=== PATIENT | female | born 1955 | race Caucasian/White ===

== ENCOUNTER 2022-09-12 13:08 | Outpatient (REF) | payer MEDICARE, SELFPAY ==
--- NOTE | ~2022-09-12 | MR_ITS ---
EXAMINATION: MR LUMBAR SPINE WITHOUT CONTRAST CLINICAL INFORMATION: Radiculopathy. COMPARISON: None TECHNIQUE: MRI of the lumbar spine was obtained using routine sequences without contrast. FINDINGS: The lumbar vertebral bodies maintain normal heights. There is severe disc height loss at L3-L4, L4-L5, mild retrolisthesis, and mild amount of subchondral endplate edema. The remaining lumbar disc levels appear normal. The distal spinal cord appears normal with conus medullaris terminating at the L1 level. The extraspinal soft tissues are within normal limits. SPINAL LEVELS: L1-L2: No posterior disc abnormality. No spinal canal or neural foraminal stenosis. L2-L3: Disc bulging with annular fissuring. No spinal canal or neural foraminal stenosis. L3-L4: Disc bulging with osteophytic ridging and mild facet arthropathy. Bilateral subarticular stenosis. Mild bilateral neural foraminal stenosis. Mild spinal canal stenosis. L4-L5: Disc bulging with mild to moderate facet arthropathy resulting in mild spinal canal stenosis and bilateral subarticular stenosis. Mild to moderate right and mild left neural foraminal stenosis. L5-S1: Mild disc bulging with mild facet arthropathy. No spinal canal or neural foraminal stenosis. MR/MR lumbar spine wo con IMPRESSION: 1. Multilevel degenerative spondylosis without significant narrowing of the spinal canal. 2. At L3-L4 there is bilateral subarticular stenosis and mild bilateral neural foraminal stenosis. 3. At L4-L5 there is mild spinal canal stenosis, bilateral subarticular stenosis, and mild to moderate right and mild left neural foraminal stenosis.
== END 2022-09-12 13:09 | disposition home or self-care (01) ==
LOC: HO.MRI 13:08
PROVIDERS: Visit Provider Psychiatry & Neurology Neurology
DX: M54.16 Radiculopathy, lumbar region (principal)
CPT/HCPCS: 72148

== ENCOUNTER 2022-11-24 09:58 | Outpatient (REF) | payer MEDICARE, SELFPAY ==
--- NOTE | ~2022-11-24 | XR_ITS ---
EXAMINATION: XR HIP, RIGHT CLINICAL INFORMATION: Pain in unspecified hip COMPARISON: None TECHNIQUE: Two views of the right hip. FINDINGS: Moderate joint space narrowing of the right hip with acetabular sclerosis and femoral collar osteophytes. No hip or pelvic fracture seen. XR/XR hip RT w PEL1V IMPRESSION: Moderate osteoarthritis of the right hip.
== END 2022-11-24 09:59 | disposition home or self-care (01) ==
LOC: HO.HOSX 09:58
PROVIDERS: PCP Internal Medicine; Visit Provider Physician Assistant
DX: M16.11 Unilateral primary osteoarthritis, right hip (principal); M54.16 Radiculopathy, lumbar region; M79.604 Pain in right leg
CPT/HCPCS: 73502; 99202

== ENCOUNTER 2022-12-01 12:58 | Outpatient (REF) | payer MEDICARE, SELFPAY ==
--- NOTE | ~2022-12-01 | FL_ITS ---
EXAMINATION: Fluoroscopy-guided right hip arthrogram and steroid injection. CLINICAL INFORMATION: Radiculopathy lumbar region. COMPARISON: None TECHNIQUE: Following explaining right hip arthrogram and steroid injection procedure, benefits and risk, a written consent was obtained. Patient was placed supine on fluoroscopy table and anterior aspect right hip joint was cleaned and draped in the usual sterile manner. 1% marker was placed in the puncture site. 1% lidocaine was injected puncture site. A 22-gauge spinal needle was inserted from the skin to the lateral border of femoral head and neck and 2 mL off noncontrast was injected and single image obtained.. A single image was obtained. Subsequently an MLO 1% lidocaine and 80 mg of Depo-Medrol was injected and needle withdrawn. Complete hemostasis achieved at puncture site. Sterile Band-Aid applied postprocedure. FINDINGS: There is reduction the right hip joint space with periarticular spurring. No bony erosive changes seen. There are no loose bodies. 80 mg of Depo-Medrol was then injected in the right hip joint. FLUOROSCOPY TIME: 1.0 minutes DOSE AREA PRODUCT: 5.649 uGy-m2 (microgray-meter squared) FL/FL arthrogram hip RT IMPRESSION: Successful fluoroscopy-guided right hip steroid injection performed.
== END 2022-12-01 12:59 | disposition home or self-care (01) ==
LOC: HO.XRAY 12:58
PROVIDERS: Visit Provider Physician Assistant
DX: M16.11 Unilateral primary osteoarthritis, right hip (principal); M54.16 Radiculopathy, lumbar region
CPT/HCPCS: 27093; 73525

== ENCOUNTER → 2023-01-02 12:38 | Outpatient (BNVA) | payer MEDICARE, SELFPAY | PROVIDERS: PCP Internal Medicine; Visit Provider Physician Assistant | DX: M16.11 Unilateral primary osteoarthritis, right hip (principal); M54.16 Radiculopathy, lumbar region | CPT/HCPCS: 99212 ==

== ENCOUNTER 2023-02-06 13:00 | Outpatient (RCR) | payer MEDICARE, SELFPAY ==
--- NOTE | 2022-12-15 14:41 | MHC.PT.EP ---
[facility] [place] Office [place] Office [place] Office [address] Jorge Alberto Adnrade [address] [phone] F: [phone] F: [phone] F: [phone] F: [phone] Physical Therapy Plan of Care Date of Evaluation: Date of Surgery: n/a Diagnosis: lumbar radiculopathy, OA of R hip Assessment: Patient is a 67 year old female presenting to PT with complaints of pain in her low back and R hip. Pt reports onset of pain began 18 months ago due to insidious onset. She presents today with impairments in pain, lumbar ROM, hip strength, core strength, radicular pain. Pt's current occupation is retired, with baseline physical activities including gardening, transfers to and from floor, ADLs, ambulating, stair negotiation, caring for grandkids. Pt expresses alf goal of reducing pain, and is motivated to work towards this in PT. Clinical presentation today is most consistent with signs and sx associated with stenosis as outlined on MRI and pt will benefit from skilled PT to address the following problems and impairments noted upon evaluation: pain, lumbar ROM, hip strength, core strength, radicular pain. These problems limit the patient with the following functional activities: gardening, transfers to and from floor, ADLs, ambulating, stair negotiation, caring for grandkids. The prescribed treatment plan of care is medically necessary. Co-morbidities of osteoporosis were identified and taken into considerations of plan of care. Pt was educated on HEP, role of PT, prognosis, POC. Frequency and Duration: The patient will be seen 2 x week x 5 weeks Short Term Goals: Pt will demonstrate improved hip abd MMT strength by 1/3 grade in 3 weeks for improved lumbopelvic stability. Pt will demonstrate ability to perform PPT with good control in 3 weeks for improved core strength. Pt will demonstrate reports of centralization of pain in 3 weeks for improved QOL. Pt will demonstrate improved R quad strength to 5/5 in 3 weeks for improved ability to transfer. [facility] Goals: Pt will demonstrate improved Yolanda score by 10% in 5 weeks for improved functional mobility. Pt will demonstrate improved LEFI score by 9 points in 5 weeks for improved functional mobility. Pt will demonstrate ability to negotiate stairs with step over step pattern in 5 weeks for return to PLOF. Pt will demonstrate ability to ambulate community distances with less reports of pain and radicular sx in 5 weeks for improved ability to navigate the community. Treatment Plan: Modalities to reduce pain, spasms and effusion. Manual therapy to restore motion and function. Therapeutic exercise to improve strength and flexibility. Neuromuscular re-education for posture and balance. Therapeutic activities to return to functional activities of daily living. Electronically signed by: Rose Artis, PT, DPT, ATC Please sign and return to therapist. Thank you for your referral.
--- NOTE | 2023-02-06 13:56 | MHC.PT.DC ---
[facility] [place] Office [place] Office [place] Office [address] Jorge Alberto Andrade [address] [phone] F: [phone] F: [phone] F: [phone] F: [phone] Physical Therapy Discharge Report Diagnosis: lumbar radiculopathy, OA of R hip Date of Surgery: n/a Date of Evaluation: 12/15/22 Date of Discharge: 02/06/23 Treatments to Date: 14 Cancellations to Date: 1 No Shows to Date: 0 Discharge Status: Improved Function Independent with HEP Recommend MD Follow-up Discharge Summary: 02/06/2023: Pt has made some progress since start of PT. Her sx are better however she is still having flare ups. Her exercises help control her radicular sx somewhat but not fully. At this point max benefits of PT have been provided and skilled PT is no longer indicated at this time. Pt knows she should continue with HEP at home. Recommend at this time referral to specialist for low back. Electronically signed by: Rose Artis, PT, DPT, ATC Please sign and return to therapist. Thank you for your referral.
== END 2023-02-06 13:56 | disposition home or self-care (01) ==
LOC: HO.PTCHIC 13:00
PROVIDERS: PCP Internal Medicine; Visit Provider Physician Assistant
DX: M54.16 Radiculopathy, lumbar region (principal); M16.11 Unilateral primary osteoarthritis, right hip
CPT/HCPCS: 97110; 97140; 97161

== ENCOUNTER 2023-03-06 13:49 | Outpatient (REF) | payer MEDICARE, SELFPAY ==
--- NOTE | ~2023-03-06 | XR_ITS ---
EXAMINATION: XR LUMBOSACRAL SPINE CLINICAL INFORMATION: Pain radiating down legs for 18 months. COMPARISON: None available. TECHNIQUE: Three views of the lumbosacral spine. FINDINGS: There is mild straightening of lumbar lordosis. The vertebral heights and alignment are normal. There is loss of L3-L4 and L4-L5 disc heights with vacuum disc phenomena and ventral spondylosis. Rest of the disc heights are normal. No visible acute fracture, lytic or sclerotic process seen. Suspect mild spinal canal stenosis at the L3-L4, L4-L5 and L5-S1 disc levels. No lytic or sclerotic process seen. The paravertebral soft tissues are normal. XR/XR lumbar spine 2-3V IMPRESSION: Degenerative disc changes L3-L4 and L4-L5 disc levels with moderate ventral spondylosis. No visible acute fracture or dislocation seen.
== END 2023-03-06 13:50 | disposition home or self-care (01) ==
LOC: HO.XRAY 13:49
PROVIDERS: PCP Internal Medicine; Visit Provider Nurse Practitioner Family
DX: M47.816 Spondylosis without myelopathy or radiculopathy, lumbar region (principal); M81.0 Age-related osteoporosis without current pathological fracture
CPT/HCPCS: 72100; 99202

== ENCOUNTER → 2023-04-09 15:25 | Outpatient (BNVA) | payer MEDICARE, SELFPAY | PROVIDERS: PCP Internal Medicine; Visit Provider Nurse Practitioner Family | DX: M81.0 Age-related osteoporosis without current pathological fracture (principal); M54.16 Radiculopathy, lumbar region; M16.11 Unilateral primary osteoarthritis, right hip; M47.816 Spondylosis without myelopathy or radiculopathy, lumbar region; M25.551 Pain in right hip; M48.061 Spinal stenosis, lumbar region without neurogenic claudication; G89.29 Other chronic pain | CPT/HCPCS: 99212 ==

== ENCOUNTER 2023-04-14 13:22 | Outpatient (REF) | payer MEDICARE, SELFPAY ==
--- NOTE | ~2023-04-14 | MR_ITS ---
EXAMINATION: MR HIP WITHOUT CONTRAST, RIGHT CLINICAL INFORMATION: Primary osteoarthritis right hip. COMPARISON: X-rays of the pelvis and right hip November 2022, x-rays lumbosacral spine February 2023. TECHNIQUE: MRI of the right hip was obtained using routine sequences on a high-field strength magnet. FINDINGS: Bone/cartilage: Right hip joint: There is nonuniform but primarily high-grade cartilage loss throughout most of the hip joint particularly anteriorly superiorly. There is associated subchondral cystic change and reactive marrow edema. There are marginal osteophytes. There is a joint effusion and synovitis. No loose bodies detected. Limited evaluation of the entire pelvis reveals no additional abnormalities in the left hip joint, symphysis pubis or sacroiliac joints. There is multilevel spondylosis of the lumbosacral spine with advanced degenerative disc changes at L3-L4 and L4-L5 manifested by marked disc space narrowing and endplate osteophytes. This is unchanged compared with x-ray of February 2023. Ligamentum teres: Normal. Labrum superior and posterior superior labrum indicative of nondisplaced degenerative tearing. No paralabral cyst. Muscles and tendons: Normal. Neurovascular structures: Normal. Lymph nodes: Normal. Miscellaneous: Intrapelvic soft tissues unremarkable. MR/MR hip RT wo con IMPRESSION: 1. Aagdbhgh-yi-okzuwh osteoarthritis of the right hip joint with joint effusion and synovitis. 2. Nondisplaced likely degenerative tearing of the superior and posterior superior labrum. 3. Incidental note made of spondylosis of the partially visualized lumbosacral spine unchanged compared with recent x-rays February 2023.
== END 2023-04-14 13:23 | disposition home or self-care (01) ==
LOC: HO.MRI 13:22
PROVIDERS: PCP Internal Medicine; Visit Provider Nurse Practitioner Family
DX: M16.11 Unilateral primary osteoarthritis, right hip (principal); M81.0 Age-related osteoporosis without current pathological fracture; M54.16 Radiculopathy, lumbar region
CPT/HCPCS: 73721

== ENCOUNTER 2023-04-21 05:57 | Outpatient (REF) | payer MEDICARE, SELFPAY ==
--- NOTE | ~2023-04-21 | FL_ITS ---
EXAMINATION: XR FLUOROSCOPY WITH IMAGES CLINICAL INFORMATION: Spinal stenosis, lumbar region without neurogenic claudication. COMPARISON: None available. TECHNIQUE: Fluoroscopy Supervised By: Dr. Boone. Fluoroscopy Time: 0.5 minutes. Cumulative Dose: 6.11 mGy. DAP: 0.106 Gycm2. Images: 4. FINDINGS: Images demonstrate needle placement and contrast injection adjacent to the right lateral L3 and L4 vertebral bodies FL/FL guidance in treatment room IMPRESSION: Fluoroscopy guidance for pain management procedure
== END 2023-04-21 05:58 | disposition home or self-care (01) ==
LOC: CF 05:57
PROVIDERS: Visit Provider Anesthesiology
DX: M47.26 Other spondylosis with radiculopathy, lumbar region (principal); M48.061 Spinal stenosis, lumbar region without neurogenic claudication; M16.11 Unilateral primary osteoarthritis, right hip; G89.29 Other chronic pain; M81.0 Age-related osteoporosis without current pathological fracture; R10.30 Lower abdominal pain, unspecified
CPT/HCPCS: 64483; 64484; 99212

== ENCOUNTER → 2023-05-01 09:41 | Outpatient (BNVA) | payer MEDICARE, SELFPAY | PROVIDERS: PCP Internal Medicine; Visit Provider Physician Assistant | DX: M16.11 Unilateral primary osteoarthritis, right hip (principal) | CPT/HCPCS: 99202 ==

== ENCOUNTER 2023-06-01 13:04 | Outpatient (AMB) | payer MEDICARE, SELFPAY ==
[2023-06-01 13:22] VITALS: BMI 24.2
--- NOTE | 2023-06-01 13:22 | MHC.OFFVIS ---
Intake Vital Signs 06/01/23 13:22 Height 5 ft 9 in Weight 164 lb BMI 24.2 Intake Visit Reasons: RT Hip OA Intake Note: Fara is a 67 year old female who presents today as a new patient with complaints of right hip pain. Her pain is felt on the lateral aspect of the hip and radiates down the leg with prolonged walking. Patient reports that she has had onging right hip pain for about 2 years now, she had a cortisone injection in the hip with nate which did not help. She was also referred to physical therapy, which did give her increased strength of the leg. She was seen with Sharon in pain mgmt who recommended epidural, this was done and did not help her symptoms. She was referred to [place] by Paolo. Allergies No Known Allergies Allergy (Verified 04/21/23 07:20) HPI RT Hip OA HPI Details Fara is a 67 year old woman who presents with complaints of right hip pain. She complains of pain primarily in the lateral aspect of her right hip for ~2 years now, though with some mild groin pain. She has pain with weight-bearing activities, and is limited in her ability to walk or stand. She says when out with her grandchildren she often has to sit, and she is unhappy by this. She says she is occasionally unable to put her foot onto the floor while she is sitting due to her pain. She is frustrated that nothing seems to be helping her pain. She has completed a course of PT and says she found ~2 days of relief from a hip arthrogram on 12/01/22. She has been seen by Pain management for her lumbar radiculopathy, an received an epidural injection on 04/21/23, which did not help. [facility] Medical History Osteoporosis Review of Systems Const All systems reviewed & are unremarkable except as noted in HPI and below Physical Exam Vital Signs: BMI result Body Mass Index 24.2 Const General: no acute distress, alert and awake Orientation/consciousness: patient oriented x3 HEENT Head: Yes normocephalic and Yes atraumatic Eyes EOM: EOMs intact bilaterally Resp Effort & Inspection: normal respiratory effort and able to speak in complete sentences Cardio Jugular venous distension: no JVD Skin General skin exam: turgor normal Rashes: no rashes Neuro General: patient oriented x3 Extrem Other: Right Hip: Trendelenberg gait with neg sign + impingement test [facility] Psych Appearance: grossly normal Affect: normal affect Attitude: cooperative Results Reviewed Results Reviewed: I personally reviewed relevant MR images 1.? Qgbjjypy-ph-vrdmhm osteoarthritis of the right hip joint with joint effusion and synovitis. ? 2.? Nondisplaced likely degenerative tearing of the superior and posterior superior labrum. ? 3.? Incidental note made of spondylosis of the partially visualized lumbosacral spine unchanged compared with recent x-rays February 2023. I personally reviewed relevant radiographs. Moderate to severe right hip OA Assessment & Plan Assessment & Plan (1) Osteoarthritis of right hip: Code(s): M16.11 - Unilateral primary osteoarthritis, right hip Plan: This is a 67 year old woman with moderately severe right hip OA. She has pain with weight-bearing activities, worse with prolonged standing or ambulation. She feels limited in her ADLs, her QOL is diminished, and is frustrated that she is unable to spend meaningful time with her grandchildren. She has some pain in her groin and the lateral aspect of her hip. I discussed her diagnosis and treatment options. The only intervention that has been helpful has been a intra-articular hip injection but this only lasted for 2 days. During that time,. however, she had complete symptom relief. She would benefit from a ELIZABETH and is a good candidate. I discussed the risks, benefits, and alternatives including, but not limited to, the risk of pain, dislocation, LLD, infection, stiffness, need for further surgery as well as potential medical complications such as blood clots, pulmonary embolism and cardiac complications. I discussed the recovery timeline and process as well as the importance of PT. Fara is a good candidate for this surgery, and she wishes to proceed with this decision. She will speak with Soo to schedule this procedure. (2) Lumbar spinal stenosis: Code(s): M48.061 - Spinal stenosis, lumbar region without neurogenic claudication Plan Scribed for Yaw Roach MD by Bret Steel, medical receptionist assistant, on 06/01/23 at 1:45 PM, EST. Coding Level of Care Code Est Pt Level 4 (36224) Diagnoses Osteoarthritis of right hip M16.11 Lumbar spinal stenosis M48.061
== END 2023-06-01 14:32 | disposition home or self-care (01) ==
PROVIDERS: PCP Internal Medicine; Visit Provider Orthopaedic Surgery
DX: M16.11 Unilateral primary osteoarthritis, right hip (principal); M48.061 Spinal stenosis, lumbar region without neurogenic claudication
CPT/HCPCS: 99214

== ENCOUNTER → 2023-06-01 13:04 | Outpatient (BNVA) | payer MEDICARE, SELFPAY | PROVIDERS: PCP Internal Medicine; Visit Provider Orthopaedic Surgery | DX: M16.11 Unilateral primary osteoarthritis, right hip (principal); M48.061 Spinal stenosis, lumbar region without neurogenic claudication | CPT/HCPCS: 99212 ==

== ENCOUNTER 2023-11-12 12:22 | Outpatient (AMB) | payer MEDICARE, SELFPAY ==
[2023-11-12 12:36] VITALS: BMI 24.2
--- NOTE | 2023-11-12 12:36 | MHC.OFFVIS ---
Intake Vital Signs 11/12/23 12:36 Height 5 ft 9 in Weight 164 lb BMI 24.2 Intake Visit Reasons: Preop-RT ELIZABETH 11/17/23 NE Intake Note: Fara is a 68 year old female who presents today for a pre op appointment of her right ELIZABETH 11/17/23 NE. Pain management agreement given. Allergies No Known Allergies Allergy (Verified 11/12/23 12:36) HPI Preop-RT ELIZABETH 11/17/23 NE HPI Details 68-year-old female who presents in the office today for her preoperative history and physical exam prior to a right total hip arthroplasty to be performed on 11/17/[address] Roach. Patient has no known allergy history. Patient is currently taking, as follows: -Alprazolam 0.5 mg PO Daily PRN -Carbamazepine 200 mg PO BID -Metoprolol succinate ER 50 mg PO daily -Raloxifene 60 mg PO Bedtime -Simvastatin 40 mg PO Bedtime Patient has a medical history, as follows: -Pre-diabetes -DJD (degenerative joint disease) -History of seizures -Polyneuropathy -HTN (hypertension) -Hyperlipemia -Osteoporosis Patient has a surgical history, as follows: -History of ORIF procedure; 2011 left distal radius -History of colonoscopy [facility] Medical History (Updated 11/12/23 @ 12:39 by Mirian Cantrell) Pre-diabetes DJD (degenerative joint disease) History of seizures Polyneuropathy HTN (hypertension) Hyperlipemia Osteoporosis Surgical History History of open reduction and internal fixation (ORIF) procedure (~2011) Hx of colonoscopy Social History Household Members: Spouse Housing: House Are you a primary intensive care anaesthetist to a significant other at home: No Do you presently have visiting nurse or other home services: No 75 years or older and lives alone: No Patient Tobacco Use Status: Never used Tobacco Use of substances other than those prescribed or required for medical reasons: No Have you been hit, kicked, punched, or otherwise hurt by someone within the past year? If so, by whom?: No Do you feel safe in your current relationship?: Yes Advance Directives: Yes (will bring dos) Advance Directives Information Provided: No Advance Directives on File: No Recently lost weight without trying: No Review of Systems Const All systems reviewed & are unremarkable except as noted in HPI and below Physical Exam Vital Signs: BMI result Body Mass Index 24.2 Const General: cooperative, healthy appearing, comfortable, no acute distress, well developed, alert and awake Orientation/consciousness: patient oriented x3 HEENT Head: Yes normal to inspection, Yes normocephalic and Yes atraumatic Eyes General: appearance normal, both eyes and all related structures EOM: EOMs intact bilaterally Neck Neck: Yes normal visual inspection and Yes no lymphadenopathy Resp Effort & Inspection: normal respiratory effort and able to speak in complete sentences Cardio Jugular venous distension: no JVD Rate: regular rate Peripheral pulses: Peripheral pulses 2+ throughout GI Inspection: Yes normal to inspection Palpation (GI): Soft to palpation Skin General skin exam: no rashes or lesions noted Rashes: no rashes Neuro General: patient oriented x3 Extrem Other: Right Hip: Skin is clean, dry, and intact. Trendelenberg gait with neg sign + impingement test + [facility] Appearance: grossly normal Mental Status: mental status grossly normal Affect: normal affect Attitude: cooperative Assessment & Plan Assessment & Plan (1) Osteoarthritis of right hip: Code(s): M16.11 - Unilateral primary osteoarthritis, right hip Qualifiers: Osteoarthritis type: unspecified Qualified Code(s): M16.11 - Unilateral primary osteoarthritis, right hip (2) Lumbar spinal stenosis: Code(s): M48.061 - Spinal stenosis, lumbar region without neurogenic claudication Qualifiers: Neurogenic claudication status: unspecified Qualified Code(s): M48.061 - Spinal stenosis, lumbar region without neurogenic claudication Plan Ms. Lerner is a 68-year-old female who presents in the office today for her preoperative history and physical exam prior to a right total hip arthroplasty to be performed on 11/17/[address] Roach. Patient has no known allergy history. Patient is currently taking, as follows: -Alprazolam 0.5 mg PO Daily PRN -Carbamazepine 200 mg PO BID -Metoprolol succinate ER 50 mg PO daily -Raloxifene 60 mg PO Bedtime -Simvastatin 40 mg PO Bedtime Patient has a medical history, as follows: -Pre-diabetes -DJD (degenerative joint disease) -History of seizures -Polyneuropathy -HTN (hypertension) -Hyperlipemia -Osteoporosis Patient has a surgical history, as follows: -History of ORIF procedure; 2011 left distal radius -History of colonoscopy I discussed in detail the procedure and what to expect pre and post operatively. We discussed the risks, benefits and alternatives to the surgery as well as the rehabilitation course. The risks; which include, but are not limited to infection, bleeding, nerve injury, ongoing pain, swelling, and stiffness, perioperative risk of injury to bones and soft tissues, and blood clots. I have answered all questions and with their understanding they have consented to move forward with a right total hip arthroplasty to be performed on 11/17/[address] Yaw Roach. Follow up will be at the post operative appointment on 12/03/2023 at 1:00 pm, or sooner if needed. Patient Instructions: Scribed for Ashia Candelaria PA-C by Mirian Cantrell medical office asst, on 11/12/2023 at 12:24 pm, EST. Coding Level of Care Code Global (74316) Diagnoses Osteoarthritis of right hip, unspecified osteoarthritis type M16.11 Osteoarthritis type: unspecified Spinal stenosis of lumbar region, unspecified whether neurogenic claudication present M48.061 Neurogenic claudication status: unspecified
== END 2023-11-12 13:08 | disposition home or self-care (01) ==
PROVIDERS: PCP Internal Medicine; Visit Provider Physician Assistant
DX: M16.11 Unilateral primary osteoarthritis, right hip (principal); M48.061 Spinal stenosis, lumbar region without neurogenic claudication
CPT/HCPCS: 99024

== ENCOUNTER → 2023-11-12 12:22 | Outpatient (BNVA) | payer MEDICARE, SELFPAY | PROVIDERS: PCP Internal Medicine; Visit Provider Physician Assistant | DX: Z01.818 Encounter for other preprocedural examination (principal); M16.11 Unilateral primary osteoarthritis, right hip; M48.061 Spinal stenosis, lumbar region without neurogenic claudication | CPT/HCPCS: 99212 ==

== ENCOUNTER 2023-11-17 05:59 | Inpatient (IN) | payer MEDICARE, SELFPAY ==
[2023-11-11 11:46] VITALS: BP 141/68; PULSE 63; RESP 16; O2SAT 95; BMI 23.3
--- NOTE | 2023-11-11 12:01 | HO.ANESPROP2 ---
HPI - Anesthesia Eval Consult details Narrative: 68yo F for Right Hip Total Replacement, 11/17/23 Medically cleared (abnormal EKG at that appointment similiar to previous, 2004, with nml stress test at that time) No recent illness NO CP/SOB with >4 mets Seizures. Last 20 years ago. Carbamazepine BID NAVAJO. Bilat hearing aids PMFSH Active Problems Active Problems: All Active Problems (Updated 11/10/23 @ 12:38 by Bharati Regalado RN) Osteoarthritis of right hip (Acute) Lumbar spinal stenosis (Acute) Chronic right hip pain (Acute) Lumbar spondylosis (Acute) Lumbar radiculopathy (Acute) Osteoarthritis of right hip (Acute) Osteoporosis (Acute) Past Medical History Medical History Pre-diabetes DJD (degenerative joint disease) History of seizures Polyneuropathy HTN (hypertension) Hyperlipemia Osteoporosis Family History Family history of problems with anesthesia: No Surgical History Surgical History History of open reduction and internal fixation (ORIF) procedure (~2011) Hx of colonoscopy History of Problems with Anesthesia: No Social History Social History Household Members: Spouse Housing: House Are you a primary health care marketing manager to a significant other at home: No Do you presently have visiting nurse or other home services: No 75 years or older and lives alone: No Patient Tobacco Use Status: Never used Tobacco Second Hand Smoke Exposure: No service: No Meds Allergies Allergy/AdvReac Type Severity Reaction Status Date / Time No Known Allergies Allergy Verified 11/17/23 06:49 Home Medications Medication Instructions Recorded Confirmed Last Taken Type carbamazepine 200 mg tablet 200 mg PO BID 11/24/22 11/17/23 11/17/23 History (Tegretol) metoprolol succinate 50 mg 50 mg PO DAILY 11/24/22 11/17/23 11/17/23 History tablet,extended release 24 hr raloxifene 60 mg tablet 60 mg PO BEDTIME 11/24/22 11/17/23 11/16/23 History simvastatin 40 mg tablet 40 mg PO BEDTIME 11/24/22 11/17/23 11/16/23 History alprazolam 0.25 mg tablet 0.5 mg PO DAILY PRN Anxiety 03/06/23 11/11/23 Unknown History Exam Height,Weight and Vital Signs: Height 5 ft 9 in Weight 71.6 kg Last Vital Signs Pulse 63 11/11/23 11:46 Resp 16 11/11/23 11:46 BP 141/68 H 11/11/23 11:46 Pulse Ox 95 11/11/23 11:46 O2 Del Method Room Air 11/11/23 11:46 Pertinent Lab Results Pertinent Lab Results: Lab Results 11/11/23 11/11/23 11/11/23 Range/Units 12:00 12:30 12:34 WBC 5.5 (4.8-10.8) X10*3/uL RBC 4.43 (4.20-5.50) X10*6/uL Hgb 13.7 (12.0-16.0) g/dl Hct 39.5 (37.0-47.0) % MCV 89.2 (80.0-98.0) fL MCH 30.9 (27.0-33.0) pg MCHC 34.7 (31.0-35.0) g/dl RDW 12.0 (11.0-16.0) % Plt Count 170 (160-400) X10*3/uL MPV 11.1 (9.4-12.3) fL Absolute Nucleated RBC 0.000 (0.0-0.012) X10*3/uL Nucleated RBC % (auto) 0.0 (0.0-0.2) /100WBC Sodium 138 (135-145) mmol/L Potassium 3.2 L (3.3-5.1) mmol/L Chloride 103 (96-108) mmol/L Carbon Dioxide 28 (22-29) mmol/L Anion Gap 10 L (12-20) BUN 14 (9-16) mg/dL Creatinine 0.71 (0.5-1.4) mg/dL Estim Creat Clear Calc 77.0 Estimated GFR > 60 Random Glucose 156 H (60-115) mg/dL Calcium 8.9 (8.4-10.2) mg/dL Nasal Screen MRSA (PCR) NEGATIVE (Negative) Nasal S. aureus Screen NEGATIVE (Negative) Nasal MRSA/S.aureus Interp SEE NOTE Blood Type B Positive Antibody Screen NEGATIVE Narrative Narrative: EKG 10/2023 SR @ 64 Inferior infarct, old Consider anterior infarct No change from previous 2004 Airway Mallampati Class: II TM Dist: >3cm Neck ROM: Full Loose/Missing/Broken Teeth: No (7-10 crowned) Heart: RRR Lungs: CTAB Assessment and Plan Assessment Anesthesia Assessment: Anesthesia Plan Discussed and PAT Visit Final Anesthetic Review Family History of Problems with Anesthesia: No History of Problems with Anesthesia: No
[2023-11-11 14:04] LABS: Hematocrit 39.5 % (37.0-47.0); Hemoglobin 13.7 g/dl (12.0-16.0); Mean Corpuscular HGB Conc 34.7 g/dl (31.0-35.0); Mean Corpuscular Hemoglobin 30.9 pg (27.0-33.0); Mean Corpuscular Volume 89.2 fL (80.0-98.0); Mean Platelet Volume 11.1 fL (9.4-12.3); Platelet Count 170 X10*3/uL (160-400); Red Blood Count 4.43 X10*6/uL (4.20-5.50); White Blood Count 5.5 X10*3/uL (4.8-10.8)
[2023-11-11 14:38] LABS: Anion Gap 10 (12-20); Blood Urea Nitrogen 14 mg/dL (9-16); Calcium 8.9 mg/dL (8.4-10.2); Carbon Dioxide 28 mmol/L (22-29); Chloride 103 mmol/L (96-108); Estimated Glomerular Filt Rate > 60; Glucose Random 156 mg/dL (60-115); Potassium 3.2 mmol/L (3.3-5.1); Sodium 138 mmol/L (135-145)
[2023-11-17] VITALS (16 sets, daily range): BP systolic 112–163; BP diastolic 60–79; PULSE 60–73; RESP 14–20; TEMP 36.1–36.7; O2SAT 92–98; BMI 25.8
--- NOTE | ~2023-11-17 | XR_ITS ---
EXAMINATION: XR PELVIS CLINICAL INFORMATION: Right hip arthroplasty COMPARISON: None available. TECHNIQUE: AP view of the pelvis. FINDINGS: There is a right total hip replacement in anatomic alignment and position. Skin brendan and soft tissue air are present. XR/XR pelvis 1-2V IMPRESSION: Right total hip replacement in anatomic alignment and position.
--- OUTSIDE RECORDS SUMMARY | 2023-11-17 06:04 | XMS_ITS | Patient Health Record ---
Author Name Unknown [facility] Address [address] [place] [address] Care Team Providers Care Caddymaster Name Role Phone Ludin MAGAÑA, Candelaria Primary Care Provider Valeriano Zamarripa Unavailable [phone] Inna Li Unavailable [phone] ALLERGIES No Known Allergies REASON FOR REFERRAL No Information MEDICATIONS Medication SIG (Take, Route, Frequency, Duration) Notes Start Date End Date Status Raloxifene HCl 60 MG TAKE 1 TABLET ONCE A DAY Oral for 30 Active Atenolol 50 MG TAKE ONE TABLET BY MOUTH EVERY DAY Oral for 30 Not-Taking TEGretol 200 MG 1 tablet Orally Twic e a day Active Simvastatin 40 MG TAKE ONE TABLET BY MOUTH AT BEDTIME Oral for 30 Active Sulindac 150 MG TAKE ONE TABLET BY MOUTH TWICE A DAY Oral for 15 Not-Taking carBAMazepine 200 MG TAKE ONE TABLET BY MOUTH THREE TIMES A DAY Oral for 30 Not-Taking Multivitamin Not-Rylan ing Nightsplint . . . AFO - L1930 for . Not-Taking Metoprolol Succinate 50 MG 1 capsule Ora lly Once a day for 30 day(s) Active ALPRAZolam 0.25 MG (Schedule IV Drug) TAKE TWO TABLETS BY MOUTH EVERY DAY NEEDED Oral for 30 Not-Taking Gabapentin 100 MG 1 capsule Orally Onc e a day for 30 day(s) Active SOCIAL HISTORY Tobacco Use: Social History Observation Description Date Details (start date - stop date) Never Smoker NA - NA Sex Assigned At : Social History Observation Description Sex Assigned At Unknown Tobacco Use/Smoking Question Answer Notes Are you a: nonsmoker Additional Findings: Tobacco Non-User Current no n-smoker Alcohol Screen Question Answer Notes Did you have a drink containing alcohol in the p ast year? No Points 0 Interpretation Negative Tobacco use other than smoking: Question Answer Notes Are you an other tobacco user? No PROBLEMS Problem Type ICD Code Onset Dates Problem Status W/U Status Risk SNOMED Code Notes Problem Plantar fascial fibromatosis (M72.2) Active confirmed Plantar fascial fibromatosis (62592001) VITAL SIGNS Height 5 ft 9 in in 12/23/2022 Weight 165 lbs 12/23/2022 BMI 24.36 kg/m2 12/23/2022 Encounters Encounter Location Date Provider Diagnosis [facility] [address] [place] [address] 12/12/2022 Valeriano Castelan [facility] [address] [place] [address] 12/23/2022 Inna Li Contusion of left great toe with damage to nail, initial encounter S90.212A ASSESSMENTS Encounter Date Diagnosis Assessment Notes Treatment Notes Treatment Clinical Notes 12/23/2022 Contusion of left great toe with damage to nail, initial encounter (ICD-10 - S90.212A) PLAN OF TREATMENT No Information Insurance Providers Payer Name Payer Address Payer Phone Subscriber Number Group Number Insured Name Patient Relationship to Insured Coverage Start Date Coverage End Date Medicare National [employer] [address] [place] [address] [id number] EduardaFara read Self - patient is the insured 8 [employer] Secondary to Medicare [address] [place] [address] [id number] EduardaFara read Self - patient is the insured 8 MEDICAL (GENERAL) HISTORY Medical History History ICD Code Epilepsy Seizures High blood pressure Measles Mumps Chicken pox Neuropathy in feet - unknown origin Surgical History Surgery Date(Month/Year)
[2023-11-17] MEDS: Lactated Ringers 1,000 ML 100 ML IVCONT ×3 (06:45→23:14)
[2023-11-17] MEDS: oxyCODONE HCl ER 10 MG TAB.ER.12H PO ×2 (06:46→20:39)
--- NOTE | 2023-11-17 07:09 | PHA.MEDREC ---
Pharmacy Consult ? Medication Reconciliation Pharmacy has completed the medication reconciliation. Reviewed med rec done by nursing
--- NOTE | 2023-11-17 07:21 | HO.ANESPROP2 ---
[facility]LY [facility] Active Problems Active Problems: All Active Problems (Updated 11/12/23 @ 12:39 by Mirian Cantrell) Osteoarthritis of right hip (Acute) Lumbar spinal stenosis (Acute) Chronic right hip pain (Acute) Lumbar spondylosis (Acute) Lumbar radiculopathy (Acute) Osteoarthritis of right hip (Acute) Osteoporosis (Acute) Past Medical History Medical History Pre-diabetes DJD (degenerative joint disease) History of seizures Polyneuropathy HTN (hypertension) Hyperlipemia Osteoporosis Functional capacity: independent ambulation Family History Family history of problems with anesthesia: No Surgical History Surgical History History of open reduction and internal fixation (ORIF) procedure (~2011) Hx of colonoscopy History of Problems with Anesthesia: No Social History Social History Household Members: Spouse Housing: House Are you a primary reproductive healthcare assistant to a significant other at home: No Do you presently have visiting nurse or other home services: No Patient Tobacco Use Status: Never used Tobacco Use of substances other than those prescribed or required for medical reasons: No Have you been hit, kicked, punched, or otherwise hurt by someone within the past year? If so, by whom?: No Are you DNR?: No Advance Directives: No Advance Directives Information Provided: Yes Advance Directives on File: No Recently lost weight without trying: No Nutrition Risks: No Nutritional Risk Poor oral hygiene: No Meds Allergies Allergy/AdvReac Type Severity Reaction Status Date / Time No Known Allergies Allergy Verified 11/17/23 06:49 Active Medications: Current Medications Lactated Ringer's (Lr) 1,000 mls @ 100 mls/hr IVCONT .Q10H MELVA Last Admin: 11/17/23 06:45 Dose: 100 mls/hr Home Medications Medication Instructions Recorded Confirmed Last Taken Type carbamazepine 200 mg tablet 200 mg PO BID 11/24/22 11/17/23 11/17/23 History (Tegretol) metoprolol succinate 50 mg 50 mg PO DAILY 11/24/22 11/17/23 11/17/23 History tablet,extended release 24 hr raloxifene 60 mg tablet 60 mg PO BEDTIME 11/24/22 11/17/23 11/16/23 History simvastatin 40 mg tablet 40 mg PO BEDTIME 11/24/22 11/17/23 11/16/23 History alprazolam 0.25 mg tablet 0.5 mg PO DAILY PRN Anxiety 03/06/23 11/11/23 Unknown History Exam Height,Weight and Vital Signs: Height 5 ft 9 in Weight 71.6 kg Last Vital Signs Temp 97.1 F 11/17/23 06:44 Pulse 64 11/17/23 06:44 Resp 16 11/17/23 06:44 BP 153/78 H 11/17/23 06:44 Pulse Ox 96 11/17/23 06:44 O2 Del Method Room Air 11/17/23 06:44 Pertinent Lab Results Pertinent Lab Results: Laboratory Tests 11/11/23 11/11/23 11/11/23 12:00 12:30 12:34 WBC 5.5 RBC 4.43 Hgb 13.7 Hct 39.5 MCV 89.2 MCH 30.9 MCHC 34.7 RDW 12.0 Plt Count 170 MPV 11.1 Absolute Nucleated RBC 0.000 Nucleated RBC % (auto) 0.0 Sodium 138 Potassium 3.2 L Chloride 103 Carbon Dioxide 28 Anion Gap 10 L BUN 14 Creatinine 0.71 Estim Creat Clear Calc 77.0 Estimated GFR > 60 Random Glucose 156 H Calcium 8.9 Nasal Screen MRSA (PCR) NEGATIVE Nasal S. aureus Screen NEGATIVE Nasal MRSA/S.aureus Interp SEE NOTE Blood Type B Positive Antibody Screen NEGATIVE Airway Mallampati Class: II TM Dist: >3cm Neck ROM: Full Heart: RRR Lungs: CTA Assessment and Plan Assessment Anesthesia Assessment: Anesthesia Plan Discussed Final Anesthetic Review Family History of Problems with Anesthesia: No History of Problems with Anesthesia: No NPO: Yes ASA Class: II Final Preanesthetic Review: Meds/Allgs Chart Reviewed, Consent Obtained/Reviewed and Anes Risks/Benef Reviewed Patient Risk: Low Procedure Risk: Low Anesthetic Plan Anesthetic Plan: GA Disposition: Standard PACU
--- NOTE | 2023-11-17 09:24 | P.BOP_ITS ---
Brief Operative Note Date of Service: 11/17/23 Pre-op diagnosis: Right hip OA Post-op diagnosis: same Procedure: Right ELIZABETH Implants: Mario Trident2 50 Mario Accolade 2 #4 132 deg with +4 32 ceramic femoral head Surgeon: Yaw Roach MD Anesthesia: GETA Was an Healthcare Market Consultant used for this Procedure?: Yes Healthcare Market Consultant: [facility] [place] Estimated blood loss (mL): 150 IV fluids (mL): 1,000 Pathology: other Condition: stable Disposition: PACU
[2023-11-17] MEDS: oxyCODONE HCl Immed Release 5 MG TABLET PO ×3 (13:00→20:41)
[2023-11-17] MEDS: ceFAZolin Sodium/Dextrose,Iso 2 GM/50 ML PIGGYBACK IV (13:41)
--- NOTE | 2023-11-17 16:58 | HO.PM.IMCN ---
History of Present Illness Data of Consult Service Date: 11/17/23 Requesting physician: [facility] [place] Primary Care Provider: Lauren Jarvis MD HPI Reason for consult: medical management 68-year-old female with history of hypertension, prediabetes, unspecified polyneuropathy, hyperlipidemia, osteoporosis, osteoarthritis admitted to Orthopedic surgery for management of osteoarthritis of the right hip s/p ELIZABETH with consult placed hospitalist service for medical management. Patient is reporting mild discomfort in the right hip but otherwise has no complaints. She denies any alcohol use, cigarette smoking, or illicit drug use. Postoperative vital signs stable. Review of Systems Review of Systems: General: No fevers, malaise, unintentional weight loss HEENT: No blurred vision, diplopia. No sore throat, nasal congestion, rhinorrhea, sinus pain, ear pain Cardiovascular: No chest pain, palpitations, or leg edema Respiratory: No shortness of breath, wheezing, cough GI: No abdominal pain, nausea, vomiting, diarrhea, constipation, melena, hematochezia : No dysuria, hematuria, increased urinary frequency, decreased urinary output MSK: No myalgia, back pain. +R hip pain Neuro: No headaches, weakness, paresthesias Skin: No rashes or lesions [facility] Medical History Pre-diabetes DJD (degenerative joint disease) History of seizures Polyneuropathy HTN (hypertension) Hyperlipemia Osteoporosis Functional capacity: independent ambulation Surgical History History of open reduction and internal fixation (ORIF) procedure (~2011) Hx of colonoscopy Social History Household Members: Spouse Housing: House Are you a primary urgent care physician assistant to a significant other at home: No Do you presently have visiting nurse or other home services: No Patient Tobacco Use Status: Never used Tobacco Use of substances other than those prescribed or required for medical reasons: No Have you been hit, kicked, punched, or otherwise hurt by someone within the past year? If so, by whom?: No Are you DNR?: No Advance Directives: No Advance Directives Information Provided: Yes Advance Directives on File: No Recently lost weight without trying: No Nutrition Risks: No Nutritional Risk Poor oral hygiene: No Meds Allergies Allergy/AdvReac Type Severity Reaction Status Date / Time No Known Allergies Allergy Verified 11/17/23 06:49 Active Medications: Current Medications Acetaminophen (Acetaminophen 325 Mg Tablet) 650 mg PO Q6H PRN PRN Reason: Pain, Mild (Pain Scale 1-3) Aspirin (Aspirin 325 Mg Tablet) 325 mg PO BID [facility] Celecoxib (Celecoxib 200 Mg Capsule) 200 mg PO BID [facility] Docusate Sodium (Docusate Sodium 100 Mg Capsule) 100 mg PO BID [facility] Fentanyl (Fentanyl Citrate/Pf 100 Mcg/2 Ml Vial) 25 mcg IVPUSH Q5M PRN; Protocol PRN Reason: Pain, Moderate(Pain Scale 4-6) Hydromorphone HCl (Hydromorphone Hcl 0.5 Mg/0.5 Ml Syringe) 0.25 mg IVPUSH Q5M PRN; Protocol PRN Reason: Pain, Severe (Pain Scale 7-10) Lactated Ringer's (Lr) 1,000 mls @ 100 mls/hr IVCONT .Q10H [facility] Last Admin: 11/17/23 06:45 Dose: 100 mls/hr Lactated Ringer's (Lr) 1,000 mls @ 100 mls/hr IVCONT .Q10H [facility] Stop: 11/18/23 09:14 Ondansetron HCl (Ondansetron Hcl 4 Mg/2 Ml Vial) 4 mg IVPUSH ONCE PRN PRN Reason: Nausea and Vomiting Ondansetron HCl (Ondansetron Hcl 4 Mg/2 Ml Vial) 4 mg IVPUSH Q8H PRN PRN Reason: Nausea and Vomiting Oxycodone HCl (Oxycodone Hcl Immed Release 5 Mg Tablet) 5 mg PO Q4H PRN PRN Reason: Pain, Moderate(Pain Scale 4-6) Last Admin: 11/17/23 16:40 Dose: 5 mg Oxycodone HCl (Oxycodone Hcl Er 10 Mg Tab.Er.12h) 10 mg PO BID [facility] Sodium Chloride (0.9 % Sodium Chloride Flush 3 Ml Syringe) 3 ml IVFLUSH QSHIFT [facility] Home Medications Medication Instructions Recorded Confirmed Last Taken Type carbamazepine 200 mg tablet 200 mg PO BID 11/24/22 11/17/23 11/17/23 History (Tegretol) metoprolol succinate 50 mg 50 mg PO DAILY 11/24/22 11/17/23 11/17/23 History tablet,extended release 24 hr raloxifene 60 mg tablet 60 mg PO BEDTIME 11/24/22 11/17/23 11/16/23 History simvastatin 40 mg tablet 40 mg PO BEDTIME 11/24/22 11/17/23 11/16/23 History alprazolam 0.25 mg tablet 0.5 mg PO DAILY PRN Anxiety 03/06/23 11/11/23 Unknown History Physical Exam Vital Signs and Narrative: Vital Signs: Last Vital Signs Temp 97.6 F 11/17/23 15:20 Pulse 73 11/17/23 15:20 Resp 20 11/17/23 15:20 BP 145/73 H 11/17/23 15:20 Pulse Ox 96 11/17/23 15:20 O2 Del Method Room Air 11/17/23 15:20 O2 Flow Rate 2 11/17/23 10:20 BMI result Body Mass Index 23.3 Constitutional - Awake and Alert, No apparent distress Eyes - PERRLA, EOMI Cardiovascular - S1S2, RRR, No edema, 2+ pedal pulses Respiratory - Normal lung expansion, Normal respiratory effort, No respiratory distress, CTA bilaterally Gastrointestinal - NT / ND; +BS; No rebound or guarding Extremities - no calf tenderness bilaterally, no swelling Skin - Warm/Dry Neurological - Alert & oriented x3, sensation intact bilateral lower extremities Psychological - Appropriate affect Results Labs 11/11/23 12:34 11/11/23 12:34 Assessment and Plan (1) Osteoarthritis of right hip: Qualifiers: Osteoarthritis type: unspecified Qualified Code(s): M16.11 - Unilateral primary osteoarthritis, right hip Status: Acute Plan 68-year-old female with history of hypertension, prediabetes, unspecified polyneuropathy, hyperlipidemia, osteoporosis, osteoarthritis admitted to Orthopedic surgery for management of osteoarthritis of the right hip s/p ELIZABETH with consult placed hospitalist service for medical management. #OA R hip s/p ELIZABETH POD0 -plan per orthopedic surgery # hypertension -blood pressure is reasonably controlled -continue metoprolol # hyperlipidemia -continue statin # osteoporosis -continue raloxifene # mood disorder -continue home meds Thank you for allowing me to participate in this consult. Signing off at this time. Please do not hesitate to call for further questions.
[2023-11-17] MEDS: ondansetron HCL 4 MG/2 ML VIAL IVPUSH (17:24)
[2023-11-17] MEDS: HYDROmorphone HCl 0.5 MG/0.5 ML SYRINGE 0.25 MG IVPUSH (17:57)
[2023-11-17] MEDS: Celecoxib 200 MG CAPSULE PO (20:38)
[2023-11-17] MEDS: carBAMazepine 200 MG TABLET PO (20:38)
[2023-11-17] MEDS: Docusate Sodium 100 MG CAPSULE PO (20:39)
[2023-11-17] MEDS: Acetaminophen 325 MG TABLET 650 MG PO (20:40)
[2023-11-18 02:59] VITALS: BP 131/64; PULSE 77; RESP 17; TEMP 36.3; O2SAT 92
[2023-11-18] MEDS: Acetaminophen 325 MG TABLET 650 MG PO (05:35)
[2023-11-18] MEDS: oxyCODONE HCl Immed Release 5 MG TABLET PO (05:35)
[2023-11-18 07:14] LABS: MANUAL DIFF FLAG NO
[2023-11-18 07:31] LABS: Basophils Percent Auto 0.2 % (0-2); Eosinophils Percent Auto 0.4 % (0-4); Hematocrit 30.3 % (37.0-47.0); Hemoglobin 10.6 g/dl (12.0-16.0); Imm Gran Abs Auto 0.05 X10*3/uL (0.00-0.03); Imm Gran Pct Auto 0.5 % (0.0-0.4); Lymphocytes Absolute Auto 1.3 X10*3/uL (1.2-4.9); Lymphocytes Percent Auto 13.2 % (20-40); Mean Corpuscular Hemoglobin 31.5 pg (27.0-33.0); Mean Corpuscular Volume 90.2 fL (80.0-98.0); Mean Platelet Volume 11.2 fL (9.4-12.3); Monocytes Absolute Auto 1.1 X10*3/uL (0.1-1.2); Monocytes Percent Auto 11.1 % (2-11); Neutrophils Absolute Auto 7.6 x10*3/uL (2.0-8.3); Neutrophils Percent Auto 74.6 % (45-73); Platelet Count 192 X10*3/uL (160-400); Red Blood Count 3.36 X10*6/uL (4.20-5.50); Red Cell Distribution Width 12.2 % (11.0-16.0); White Blood Count 10.1 X10*3/uL (4.8-10.8)
--- NOTE | 2023-11-18 07:37 | PM.PNORT ---
Subjective Subjective Date of Service: 11/18/23 Interval history: POD1 s/p RTHA Patient is resting in bed comfortably No overnight events Pain is managed No additional complaints Physical Exam Vital Signs: Vital Signs: Last Vital Signs Temp 97.3 F 11/18/23 02:59 Pulse 77 11/18/23 02:59 Resp 17 11/18/23 02:59 BP 131/64 11/18/23 02:59 Pulse Ox 92 11/18/23 02:59 O2 Del Method Room Air 11/18/23 02:59 O2 Flow Rate 2 11/17/23 10:20 BMI result Body Mass Index 25.8 Const: General: cooperative, healthy appearing and no acute distress Resp: Effort & Inspection: normal respiratory effort and able to speak in complete sentences Cardio: Rate: regular rate Peripheral pulses: Peripheral pulses 2+ throughout GI: Palpation (GI): Soft to palpation Skin: Lesions: no lesions Rashes: no rashes Extrem: Other: right hip dressing is c/d/i. Able to dorsi/plantar flex. Calf is supple and nontender. Sensation intact. Pedal pulse intact. Procedures Date of Service Date of Service: 11/18/23 Progress Note: A&P Assessment and plan (1) Status post total hip replacement, right: Status: Acute Plan Continue pain mgmnt Begin dvt ppx ASA begin PT for RTHA - posterior precautions Dispo planning-Pending PT eval, pain mgmnt Time Spent With Patient Time: Total time managing care of this patient today ____ minutes. Quality Stroke Does the patient have a stroke diagnosis?: No VTE Prior VTE?: No VTE Risk Level:: Surgical - high VTE Device Contraindication: N/A - Device Ordered VTE Drug Contraindication: N/A - Med Ordered
[2023-11-18 07:39] LABS: Anion Gap 11 (12-20); Blood Urea Nitrogen 8 mg/dL (9-16); Calcium 8.3 mg/dL (8.4-10.2); Carbon Dioxide 28 mmol/L (22-29); Chloride 102 mmol/L (96-108); Creatinine Clr Calc Pharmacy 103.2; Estimated Glomerular Filt Rate > 60; Glucose Fasting 130 mg/dL (60-99); Potassium 3.2 mmol/L (3.3-5.1); Sodium 138 mmol/L (135-145)
[2023-11-18 08:00] VITALS: BP 130/65; TEMP 36.3; O2SAT 95
[2023-11-18] MEDS: Aspirin 325 MG TABLET PO (08:57)
[2023-11-18] MEDS: Metoprolol Succinate ER 50 MG TAB.ER.24H PO (08:58)
[2023-11-18] MEDS: Celecoxib 200 MG CAPSULE PO (08:59)
[2023-11-18] MEDS: carBAMazepine 200 MG TABLET PO (08:59)
[2023-11-18] MEDS: oxyCODONE HCl ER 10 MG TAB.ER.12H PO (09:01)
[2023-11-18] MEDS: ondansetron HCL 4 MG/2 ML VIAL IVPUSH (10:55)
--- NOTE | 2023-11-18 12:21 | HO.POSTANES ---
Post Anesthesia Evaluation Post Anesthesia Evaluation Date of Service: 11/18/23 Vital Signs: Vital Signs Temp Pulse Resp BP Pulse Ox O2 Del Method 11/18/23 08:00 97.3 F 130/65 95 Room Air 11/18/23 02:59 97.3 F 77 17 131/64 92 Room Air Anesthesia: General Mental Status: Awake Pain Control: Satisfactory Nausea/Vomiting: None Hydration: Adequate Anesthesia-Related Issues: No Anes. Related Issues
--- NOTE | 2023-11-18 13:43 | MHC.CM.PN ---
pt lives with will be going home with [facility] for home pt ,pt has own ride home dc plan home w/[facility]
[2023-11-18 15:05] VITALS: BP 117/56; PULSE 81; RESP 16; TEMP 36.6; O2SAT 91
--- NOTE | 2023-11-18 15:21 | PM.DS ---
DS: Providers Provider Date of Service: 11/18/23 Date of admission: 11/17/23 05:59 Primary care physician: Lauren Jarvis MD Consults: 11/17/23 09:13 Consult to Hospitalist Routine Comment: Consulting Provider: Hospitalist Reason For Exam: medical managment DS: Diagnosis Discharge Diagnosis (1) Status post total hip replacement, right: Status: Acute DS: Summary Hospital Course Hospital Course: The patient underwent a successful right total hip arthroplasty, they were transferred to PACU and then to the floor to recover. During their stay, their vitals were stable, afebrile at 98.0. Labs were unremarkable, H/H 10.6/30.36. POD 1 they were started on Aspirin 325mg po bid for DVT ppx, they also received Physical Therapy services twice a day. Prior to discharge, their dressing was clean dry and intact, and the plan was to be discharged home with VNA services. Time Attestation Discharge coordination time: Less than 30 minutes Quality: Safe Use of Opioids Does Pt have an Active Cancer Diagnosis on the Problem List?: No Quality: Stroke Does the patient have a stroke diagnosis?: No Physical Exam Vital Signs: Vital Signs: Last Vital Signs Temp 98 F 11/18/23 15:05 Pulse 81 11/18/23 15:05 Resp 16 11/18/23 15:05 BP 117/56 L 11/18/23 15:05 Pulse Ox 91 L 11/18/23 15:05 O2 Del Method Room Air 11/18/23 15:05 O2 Flow Rate 2 11/17/23 10:20 BMI result Body Mass Index 25.8 Const: General: cooperative, healthy appearing and no acute distress Resp: Effort & Inspection: normal respiratory effort and able to speak in complete sentences Cardio: Rate: regular rate Peripheral pulses: Peripheral pulses 2+ throughout GI: Palpation (GI): Soft to palpation Skin: Lesions: no lesions Rashes: no rashes Extrem: Other: right hip dressing is c/d/i. Able to dorsi/plantar flex. Calf is supple and nontender. Sensation intact. Pedal pulse intact. DS: Data Data Completed and Pending Pending studies at discharge: Pending at discharge 11/17/23 08:19 Surgical [PTH] Routine Labs on day of discharge: Laboratory Results - last 24 hr 11/18/23 05:44 WBC 10.1 RBC 3.36 L D Hgb 10.6 L D Hct 30.3 L D MCV 90.2 MCH 31.5 MCHC 35.0 RDW 12.2 Plt Count 192 MPV 11.2 Immature Gran % (Auto) 0.5 H Neut % (Auto) 74.6 H Lymph % (Auto) 13.2 L [place] % (Auto) 11.1 H Eos % (Auto) 0.4 Baso % (Auto) 0.2 Lymph # (Auto) 1.3 [place] # (Auto) 1.1 Eos # (Auto) 0.0 Baso # (Auto) 0.0 Abs Immat Gran (auto) 0.05 H Absolute Neuts (auto) 7.6 Absolute Nucleated RBC 0.000 Nucleated RBC % (auto) 0.0 Sodium 138 Potassium 3.2 L Chloride 102 Carbon Dioxide 28 Anion Gap 11 L BUN 8 L Creatinine 0.53 Estim Creat Clear Calc 103.2 Estimated GFR > 60 Fasting Glucose 130 H Calcium 8.3 L D Discharge Plan Discharge Anticipated Discharge Date/Time: 11/18/23 15:47 Patient Disposition: Home Health Service Discharge Diagnosis: s/p RTHA Referrals: Tigist Reno PA-C [Physician [facility]p [facility]uler] - 12/03/23 1:00 pm Discharge Medications: New acetaminophen 325 mg Tablet 650 mg PO Q6H PRN (Reason: Pain, Mild (Pain Scale 1-3)) 30 Days Qty: 240 0RF aspirin 325 mg Tablet 325 mg PO BID 42 Days Qty: 84 0RF celecoxib 200 mg Capsule 200 mg PO BID 30 Days Qty: 60 0RF docusate sodium 100 mg Capsule 100 mg PO BID 30 Days Qty: 60 0RF oxycodone 5 mg Tablet 5 mg PO Q4H PRN (Reason: Pain, Moderate(Pain Scale 4-6)) 7 Days Qty: 42 0RF Rx Instructions: Partial Fill upon patient request. Continued (DME) walker Misc See Rx Instructions .MEDSUPPLY Qty: 1 0RF Rx Instructions: Folding Front wheeled walker simvastatin 40 mg tablet 40 mg PO BEDTIME metoprolol succinate 50 mg tablet extended release 24 hr 50 mg PO DAILY carbamazepine [Tegretol] 200 mg tablet 200 mg PO BID raloxifene 60 mg tablet 60 mg PO BEDTIME alprazolam 0.25 mg tablet 0.5 mg PO DAILY PRN (Reason: Anxiety) Discharge Orders: Discharge Order (Routine); Ordered 11/18/23 Ordered By: Ashia Candelaria Diet: Advance to usual diet Activity on Discharge: Use cane or walker Stand Alone Forms: Patient Portal Discharge page Care Plan Goals: restore fxn to rt hip Health Concerns: none Plan of Treatment: Physical Therapy for total hip arthroplasty: posterior precautions, gait training, ROM, strength Limit stair climbing No showering, no tub bath-keep dressing clean, dry and intact No driving x6 weeks Continue ASA for x 6 weeks Follow up with [facility] in 2 weeks Assessment: stable for discharge
--- NOTE | 2023-11-18 15:23 | W.MHC.F2F ---
Service Date Service Date: 11/18/23 Encounter Date of encounter: 11/18/23 Reasons for Services Signs and symptoms assessed: s/p RTHA. Pt. is considered homebound due to recent surgery. Unable to drive, poor balance, poor gait mechanics. Reason for physical therapy: home safety and mobility, therapeutic exercises, restore joint function, gait/transfer training, assess need for DME and ADL training Reason for occupational therapy: home safety and mobility, therapeutic exercises, restore joint function, gait/transfer training, assess need for DME and ADL training Homebound: Leaving the home is medically contraindicated at this time without the asist of a device and/or another person due th the listed conditions above and below. Reason homebound: unsteady gait / fall risk, pain with ambulation, pain with transfers, poor balance / fall risk and unable to drive Certification: Based on the above findings, I certify that this patient is confined to the home and needs intermittent nursing home care, physical therapy and/or speech therapy, or continues to need occupational therapy. The patient is under my care, and I have initiated the establishment of the plan of care. The patient will be followed by a physician who will periodically review the plan of care. Time Spent With Patient Time: Total time managing care of this patient today ____ minutes.
--- NOTE | 2023-11-20 16:24 | P.OP_ITS ---
Operative Note Operative Note Date of Service: 11/17/23 Narrative: Date of Service: 11/17/23 Pre-op diagnosis: Right hip OA Post-op diagnosis: same Procedure: Right ELIZABETH Implants: [place] Trident2 50 [place] Accolade 2 #4 132 deg with +4 32 ceramic femoral head Surgeon: Yaw Roach MD Anesthesia: GETA Was an Branch Lending Officer used for this Procedure?: Yes Branch Lending Officer: Tigist Reno Estimated blood loss (mL): 150 IV fluids (mL): 1,000 Pathology: other Condition: stable Disposition: PAC Procedure in detail: Patient was brought into the operating room and placed in the right lateral decubitus position. All bony prominences were well padded and the limb was prepped and draped in standard sterile fashion. A time-out was called to identify proper site procedure proper surgeon IV antibiotics and 1 g of transaxemic acid were administered. I began by making a curvilinear incision ov er the posterolateral aspect of the greater trochanter. Dissection was taken down to the tensor fascia which was incised in line with the incision and a Charnley retractor was placed. Cautery was used to maintain hemostasis. The hip was internally rotated and the external rotators were identified. The vessels were cauterized and a full-thickness capsular/external rotator layer was developed starting just proximal to the piriformis. This layer was tagged and a dull Hohmann retractor was placed underneath the neck in the hip was dislocated. A neck cut was made 1 cm proximal to the lesser trochanter and the head and neck were removed and measured 50mm on the back table. The head was arthritic. I then removed the labrum and cauterized the fovea. I started with a 44 reamer and medialized to the inner table. I sequentially reamed up to a size 50and impacted a50mm cup at 45 degrees of inclination and 25 degrees of version. I then placed a 10 deg posterior lipped liner and turned my attention to the femur. I identified the piriformis insertion and used this as a starting point for my char cutter. The medius tendon was protected with a Hibs retractor. A Charnley awl was inserted in the canal and a curved curette used to remove the lateral bone. I irrigated copiously. I then sequentially broached in the patient's natural version to a size 5 and placed my trial implants. I used a #4/132/+4 based on my pre-operative template. Using a trail head I took the hip through range of motion. I was satisfied with the stability and length. I removed all instrumentation and copiously irrigated. I placed my final femoral implant and again took the hip through range of motion and was satisfied with the stability and length. The final +4 implant was impacted in place and the hip reduced. I then irrigated for 3 minutes with iodine and placed 1 g of local transaxemic acid. I performed a capsular closure with 2.0 fiberwire, Sophia's fascia with 0 Vicryl, subcuticular with 2-0 Vicryl and the skin with brendan. Patient was placed into a sterile dressing. Patient was extubated brought to the recovery room in stable condition. There were no known complications.
== END 2023-11-18 16:07 | disposition home health service (06) | DRG 470 ==
LOC: HO.SSSA 06:02 → HO.S3 16:36
PROVIDERS: Nurse Practitioner; Physician Assistant; Admitting Provider Orthopaedic Surgery; PCP Internal Medicine; Visit Provider Orthopaedic Surgery
PROC: 0SR903A Replacement of Right Hip Joint with Ceramic Synthetic Substitute, Uncemented, Open Approach (ICD-10-PCS; CPT 27130; principal; 2023-11-17 07:30)
DX: M16.11 Unilateral primary osteoarthritis, right hip (principal); E78.5 Hyperlipidemia, unspecified; G62.9 Polyneuropathy, unspecified; I10 Essential (primary) hypertension; M81.0 Age-related osteoporosis without current pathological fracture; Z79.82 Long term (current) use of aspirin; Z79.899 Other long term (current) drug therapy
CPT/HCPCS: 27130; 36415; 72170; 80048; 85025; 85027; 86850; 86900; 86901; 87640; 87641; 88304; 88311; 97110; 97116; 97162; 97166; 99024; C1776; J0131; J0690; J1100; J1170; J2250; J2405; J2704; J2795; J3010; J7120

== ENCOUNTER → 2023-11-17 05:59 | Outpatient (BNV) | payer MEDICARE, SELFPAY | PROVIDERS: Admitting Provider Orthopaedic Surgery; PCP Internal Medicine; Visit Provider Orthopaedic Surgery | DX: Z47.1 Aftercare following joint replacement surgery (principal); Z96.641 Presence of right artificial hip joint | CPT/HCPCS: 27130; 99024; G0180 ==

== ENCOUNTER → 2023-11-17 05:59 | Outpatient (BNV) | payer MEDICARE, SELFPAY | PROVIDERS: Admitting Provider Orthopaedic Surgery; PCP Internal Medicine; Visit Provider Physician Assistant | DX: M16.11 Unilateral primary osteoarthritis, right hip (principal) | CPT/HCPCS: 99222 ==

== ENCOUNTER 2023-12-03 12:34 | Outpatient (AMB) | payer MEDICARE, SELFPAY ==
--- NOTE | 2023-12-03 12:40 | A.OFFVIS_ITS ---
Intake Intake Visit Reasons: PO-RT ELIZABETH 11/17/23 NE Intake Note: Fara a 68 year old female presents today for a post operative right ELIZABETH on 11/17/23 NE. Patient reports she is doing well, states her pain level is about a 1 or 2 that is brought on with at home exercises. Allergies No Known Allergies Allergy (Verified 12/03/23 13:01) HPI PO-RT ELIZABETH 11/17/23 NE HPI Details 68-year-old female who returns to the [facility] today for post-op right ELIZABETH, 11/17/[address] Roach. She states she has pain with working on home exercises and rates the pain as about 2 on the scale of 0-10. She is completed with home therapy yesterday. She has discontinued taking oxycodone and is currently taking aspirin for her pain. She is doing well overall and has no other concerns today. COUNTS INCLUDE 234 BEDS AT THE [facility] Medical History Pre-diabetes DJD (degenerative joint disease) History of seizures Polyneuropathy HTN (hypertension) Hyperlipemia Osteoporosis Surgical History History of open reduction and internal fixation (ORIF) procedure (~2011) Hx of colonoscopy Social History Household Members: Spouse Housing: House Are you a primary healthcare educator to a significant other at home: No Do you presently have visiting nurse or other home services: No 75 years or older and lives alone: No Patient Tobacco Use Status: Never used Tobacco Second Hand Smoke Exposure: No service: No Review of Systems Const All systems reviewed & are unremarkable except as noted in HPI and below Physical Exam Extrem Other: Right hip: Incision clean, dry and intact. No erythema or drainage. No pain with ROM. She has mild discomfort with hip flexion. NVI. Assessment & Plan Assessment & Plan (1) Status post total hip replacement, right: Code(s): Z96.641 - Presence of right artificial hip joint Plan Carine removed, steri strips applied. She will begin to transition to Outpatient PT to continue working on Gait training, ROM and quad strength. No driving for another 4 weeks. She will require ppx abx for dental procedures. She will f/u in 4 weeks, sooner if needed. Orders: Orders PT Evaluation and Treatment Today Z96.641 - Presence of right artificial hip joint Patient Instructions: Scribed for Tigist Reno PA-C, by Hector Gruber medical logistics specialist, on 12/03/2023 at 1:00 PM EST. Ileana, Tigist Reno PA-C, have personally reviewed and agree with the information entered by the scribe. Coding Level of Care Code Global (02436) Diagnoses Status post total hip replacement, right Z96.641
== END 2023-12-03 13:20 | disposition home or self-care (01) ==
PROVIDERS: PCP Internal Medicine; Visit Provider Physician Assistant
DX: Z96.641 Presence of right artificial hip joint (principal)
CPT/HCPCS: 99024

== ENCOUNTER → 2023-12-03 12:34 | Outpatient (BNVA) | payer MEDICARE, SELFPAY | PROVIDERS: PCP Internal Medicine; Visit Provider Physician Assistant | DX: Z47.1 Aftercare following joint replacement surgery (principal); Z96.641 Presence of right artificial hip joint | CPT/HCPCS: 99212 ==

== ENCOUNTER 2024-01-04 13:57 | Outpatient (AMB) | payer MEDICARE, SELFPAY ==
--- NOTE | 2024-01-04 14:06 | MHC.OFFVIS ---
Intake Intake Visit Reasons: PO-RT ELIZABETH 11/17/23 NE Intake Note: Fara is a 68 year old female who presents to the office today for a PO RT ELIZABETH 11/17/23. Pt states she is feeling well. She states after PT she will have some pain but denies any other pain Allergies No Known Allergies Allergy (Verified 01/04/24 14:07) HPI PO-RT ELIZABETH 11/17/23 NE HPI Details Fara is a 68 year old woman who presents ~7 weeks S/P right ELIZABETH. She says she is doing well. She has some increased pain following PT but otherwise is happy with the results of her surgery. [facility] Medical History Osteoarthritis of right hip Pre-diabetes DJD (degenerative joint disease) History of seizures Polyneuropathy HTN (hypertension) Hyperlipemia Osteoporosis Surgical History History of open reduction and internal fixation (ORIF) procedure (~2011) Hx of colonoscopy Social History Household Members: Spouse Housing: House Are you a primary care worker to a significant other at home: No Do you presently have visiting nurse or other home services: No 75 years or older and lives alone: No Patient Tobacco Use Status: Never used Tobacco Second Hand Smoke Exposure: No service: No Review of Systems Const All systems reviewed & are unremarkable except as noted in HPI and below Physical Exam Const General: no acute distress, alert and awake Orientation/consciousness: patient oriented x3 HEENT Head: Yes normocephalic and Yes atraumatic Eyes EOM: EOMs intact bilaterally Resp Effort & Inspection: normal respiratory effort and able to speak in complete sentences Cardio Jugular venous distension: no JVD Skin General skin exam: turgor normal Rashes: no rashes Neuro General: patient oriented x3 Extrem Other: No pain with hip ROM Mild Trendelenberg gait Psych Appearance: grossly normal Affect: normal affect Attitude: cooperative Assessment & Plan Assessment & Plan (1) Status post total hip replacement, right: Code(s): Z96.641 - Presence of right artificial hip joint Plan: Doingwell Cont PT and strengthening F/u 6 weeks Plan Prepared for Yaw Roach MD by Bret Steel, medical support assistant, on 01/04/24 at 2:11 PM, EST. Coding Level of Care Code Global (48892) Diagnoses Status post total hip replacement, right Z96.641
== END 2024-01-04 14:27 | disposition home or self-care (01) ==
PROVIDERS: PCP Internal Medicine; Visit Provider Orthopaedic Surgery
DX: Z96.641 Presence of right artificial hip joint (principal)
CPT/HCPCS: 99024

== ENCOUNTER → 2024-01-04 13:57 | Outpatient (BNVA) | payer MEDICARE, SELFPAY | PROVIDERS: PCP Internal Medicine; Visit Provider Orthopaedic Surgery | DX: Z47.1 Aftercare following joint replacement surgery (principal); Z96.641 Presence of right artificial hip joint | CPT/HCPCS: 99212 ==

== ENCOUNTER 2024-01-21 14:00 | Outpatient (RCR) | payer MEDICARE, SELFPAY ==
--- NOTE | 2023-12-08 15:40 | MHC.PT.EP ---
[facility] [place] Office [place] Office [place] Office [address] Jorge Alberto Andrade [address] [phone] F: [phone] F: [phone] F: [phone] F: [phone] Physical Therapy Plan of Care Date of Evaluation: 12/08/23 Date of Surgery: 11/17/2023 Diagnosis: S/P R ELIZABETH 11/17/23 Assessment: Patient is a 68 year old female presenting to PT s/p R ELIZABETH . She presents today with impairments in pain, ROM, strength, balance, gait. Pt's current occupation is retired, with baseline physical activities including ambulating, stair negotiation, ADLs, manager policy. Pt expresses senior living goal of returning to PLOF, and is motivated to work towards this in PT. Clinical presentation today is most consistent with signs and sx associated with R ELIZABETH 11/17/2023 and pt will benefit from skilled PT 2 week x 5 weeks to address the following problems and impairments noted upon evaluation: pain, ROM, strength, balance, gait. These problems limit the patient with the following functional activities: ambulating, stair negotiation, ADLs, manager policy. The prescribed treatment plan of care is medically necessary. Co-morbidities of osteoporosis, HTN, hx seizures were identified and taken into considerations of plan of care. Pt was educated on HEP, role of PT, prognosis, POC. Frequency and Duration: The patient will be seen 2 x week x 5 weeks Short Term Goals: Pt will demonstrate improved hip MMT strength by 1/3 grade in 3 weeks for improved lumbopelvic stability. Pt will demonstrate improved R knee MMT strength by 1/3 grade in 3 weeks. Pt will demonstrate ability to ambulate with min to no antalgia in 2 weeks with the RW. Immigration Consultant Goals: Pt will demonstrate improved LEFI score with min to no pain in 5 weeks for improved functional mobility. Pt will demonstrate ability to ambulate with LRD in 5 weeks and good mechanics for return to PLOF. Pt will demonstrate ability to negotiate stairs with step over step with min to no pain in 5 weeks for improved access to her home and community. Treatment Plan: Modalities to reduce pain, spasms and effusion. Manual therapy to restore motion and function. Therapeutic exercise to improve strength and flexibility. Neuromuscular re-education for posture and balance. Therapeutic activities to return to functional activities of daily living. Electronically signed by: Rose Artis, PT, DPT, ATC Please sign and return to therapist. Thank you for your referral.
--- NOTE | 2024-01-21 15:03 | MHC.PT.DC ---
[facility] [place] Office [place] Office [place] Office [address] Jorge Alberto Andrade [address] [phone] F: [phone] F: [phone] F: [phone] F: [phone] Physical Therapy Discharge Report Diagnosis: S/P R ELIZABETH 11/17/23 Date of Surgery: 11/17/2023 Date of Evaluation: 12/08/23 Date of Discharge: 01/21/24 Treatments to Date: 13 Cancellations to Date: 0 No Shows to Date: 0 Discharge Status: Achieved Goals Improved Function Independent with HEP Discharge Summary: 01/21/2024: Pt has made great progress with start of care. She is essentially pain free and has met her goals at this time. She does however continue to have some minor antalgia but I expect this to only improve further as she continues to get stronger. 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 At this time max benefits of PT have been provided and skilled PT is no longer indicated. Pt is in agreement with d/c today and she is very appreciative and happy with her outcome. Electronically signed by: Rose Artis, PT, DPT, ATC Please sign and return to therapist. Thank you for your referral.
== END 2024-01-21 15:03 | disposition home or self-care (01) ==
LOC: HO.PTCHIC 14:00
PROVIDERS: PCP Internal Medicine; Visit Provider Physician Assistant
DX: Z96.641 Presence of right artificial hip joint (principal)
CPT/HCPCS: 97110; 97161; 97530

== ENCOUNTER 2024-02-08 11:15 | Outpatient (AMB) | payer MEDICARE, SELFPAY ==
--- NOTE | 2024-02-08 11:54 | MHC.OFFVIS ---
Intake Vital Signs 02/08/24 11:58 Height 5 ft 9 in Weight 160 lb BMI 23.6 Intake Visit Reasons: PO-RT ELIZABETH 11/17/23 NE-follow up Intake Note: Fara is a 68 year old female who presents today for a post operative appointment, s/p right ELIZABETH 11/17/23. She reports that she is doing very well and has no concerns. Allergies No Known Allergies Allergy (Verified 02/08/24 12:03) HPI PO-RT ELIZABETH 11/17/23 NE-follow up HPI Details Fara is a 68 year old female who presents today for a post operative appointment, s/p right ELIZABETH 11/17/23. She reports that she is doing very well and has no concerns. REPLACED BY [facility] Medical History Osteoarthritis of right hip Pre-diabetes DJD (degenerative joint disease) History of seizures Polyneuropathy HTN (hypertension) Hyperlipemia Osteoporosis Surgical History History of open reduction and internal fixation (ORIF) procedure (~2011) Hx of colonoscopy Social History Household Members: Spouse Housing: House Are you a primary continuum of care manager to a significant other at home: No Do you presently have visiting nurse or other home services: No 75 years or older and lives alone: No Patient Tobacco Use Status: Never used Tobacco Second Hand Smoke Exposure: No service: No Physical Exam Vital Signs: BMI result Body Mass Index 23.6 Extrem Other: walking well with no gait disturbance and no antalgia Results Reviewed Results Reviewed: I personally reviewed relevant radiographs. Right ELIZABETH in expected post operative position with no hardware complications or evidence of loosening Assessment & Plan Assessment & Plan (1) Status post total hip replacement, right: Code(s): Z96.641 - Presence of right artificial hip joint Plan: Doing well s/p right ELIZABETH COntinue activity as tolerated Dental prophylaxis discussed Orders: Orders XR pelvis 1-2V 02/08/24 M25.559 - Pain in unspecified hip Coding Level of Care Code Global (23738) Diagnoses Status post total hip replacement, right Z96.641
[2024-02-08 11:58] VITALS: BMI 23.6
== END 2024-02-08 13:14 | disposition home or self-care (01) ==
PROVIDERS: PCP Internal Medicine; Visit Provider Orthopaedic Surgery
DX: Z96.641 Presence of right artificial hip joint (principal)
CPT/HCPCS: 99024

== ENCOUNTER 2024-02-08 11:15 | Outpatient (REF) | payer MEDICARE, SELFPAY ==
--- NOTE | ~2024-02-08 | XR_ITS ---
EXAMINATION: XR HIP, RIGHT CLINICAL INFORMATION: Right hip pain COMPARISON: Right hip x-rays on 11/24/2022 TECHNIQUE: Frontal x-ray of the pelvis, frontal and crosstable lateral X-rays of right hip. FINDINGS: BONES: Bony structures are intact. There is no focal bone destruction or periosteal reaction seen. JOINTS: There is normal alignment of total hip arthroplasty prostheses. SOFT TISSUE: Soft tissue is normal. No abnormal air collection is seen. XR/XR hip RT min 2V IMPRESSION: 1. Unchanged normal pelvis x-ray. No fracture or dislocation is seen. 2. Interval successful right total hip arthroplasty with normal alignment of right total hip arthroplasty prostheses. No fracture or dislocation or signs of loosening are seen.
== END 2024-02-08 11:16 | disposition home or self-care (01) ==
LOC: HO.HOSX 11:15
PROVIDERS: PCP Internal Medicine; Visit Provider Orthopaedic Surgery
DX: M25.551 Pain in right hip (principal); Z47.1 Aftercare following joint replacement surgery; Z96.641 Presence of right artificial hip joint
CPT/HCPCS: 73502; 99212

== ENCOUNTER 2024-07-05 11:13 | Outpatient (REF) | payer MEDICARE, SELFPAY ==
[2024-07-05 14:00] LABS: Cholesterol 144 mg/dL (<200); HDL Cholesterol 57 mg/dL (>40); LDL Cholesterol Calculated 65 mg/dL (<100); Triglycerides 111 mg/dL (<150)
[2024-07-08 00:27] LABS: TS Negative Control Passed; TS Panel A 0; TS Panel B 0; TS Positive Control Passed; TSpotTB Negative (Negative)
== END 2024-07-05 11:14 | disposition home or self-care (01) ==
LOC: HO.HMGCLDS 11:13
PROVIDERS: PCP Nurse Practitioner Pediatrics; Visit Provider Dermatology
DX: L66.1 Lichen planopilaris (principal)
CPT/HCPCS: 36415; 80061; 86481

== ENCOUNTER 2024-12-06 13:00 | Outpatient (RCR) | payer MEDICARE, SELFPAY | END 2025-01-03 13:12 | disposition home or self-care (01) | LOC: HO.PTCHIC 13:00 | PROVIDERS: PCP Nurse Practitioner Pediatrics; Visit Provider Podiatrist | DX: M76.822 Posterior tibial tendinitis, left leg (principal) | CPT/HCPCS: 97110; 97140; 97161 ==

== ENCOUNTER 2025-02-16 08:25 | Outpatient (REF) | payer MEDICARE, SELFPAY ==
--- NOTE | ~2025-02-16 | XR_ITS ---
CLINICAL HISTORY: M25.559 - Pain in unspecified hip 1 view pelvis Comparison: DX/SR - XR HIP RT MIN 2V - 02/08/24 11:41 EDT Findings: Two films were obtained. Total right hip arthroplasty with intact hardware. No periprosthetic lucency to suggest loosening or infection. No acute fracture or dislocation. 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 Multiple pelvic phleboliths. IMPRESSION: 1. No acute fracture or dislocation. 2. No visible hardware complications. This document has been electronically signed by: Didi Méndez DO on 02/16/2025 21:11:08
--- OUTSIDE RECORDS SUMMARY | 2025-02-16 08:35 | XMS_ITS ---
Author Organization [facility] Address [address] [place] [address] Care Team Providers Care Client Success Specialist Name Role Phone Ludin MAGAÑA, Candelaria Primary Care Provider Unava Inna Neal [phone] REASON FOR VISIT r/s for sooner apt Encounters Encounter Location Date Provider Diagnosis [facility] [address] [place] [address] 01/06/2025 Inna Li Plan Of Treatment No Information Progress Notes * Fara SORENSON CDOB:1955 (69 yo F)Acc No.[id number]:01/06/2025 Progress Note Patient:?Fara SORENSON Provider:?Inna Li DPM :1955???Age:69 Y???Sex:Female D ate:01/06/2025 Address:[address] [id number] Pcp:Candelaria Noland MD Subjective: * Chief Complaints: * ???1. R/s for sooner apt. * Medical History:? Objective: * Vitals:? Assessment: Plan: * Treatment: * Images: * The named appointment provid er may or may not be the originator of this progress note, and it is not deemed complete until electronically signed by the appointment provider. Sign off status: Pending * Provider:?Inna Li DPM Date:? Generated for Neena amaral/Brigette/Ravinder on:?02/16/2025 08:35 AM EDT
--- OUTSIDE RECORDS SUMMARY | 2025-02-16 08:35 | XMS_ITS ---
Author [facility] Address [address] [place] [address] Care Team Providers Care Property Economist Name Role Phone Ludin MAGAÑA, Candelaria Primary Care Provider Inna Aguirre Unavailable [phone] Allergies No Known Allergies REASON FOR VISIT Foot pain Medications Medication SIG (Take, Route, Frequency, Duration) Notes Start Date End Date Status Nightsplint . . . AFO - L1930 for . Not-Taking Multivitamin Not-Rylan ing ALPRAZolam 0.25 MG (Schedule IV Drug) TAKE TWO TABLETS BY MOUTH EVERY DAY NEEDED Oral for 30 Not-Taking carBAMazepine 200 MG TAKE ONE TABLET BY MOUTH THREE TIMES A DAY Oral for 30 Not-Taking Sulindac 150 MG TAKE ONE TABLET BY MOUTH TWICE A DAY Oral for 15 Not-Taking Atenolol 50 MG TAKE ONE TABLET BY MOUTH EVERY DAY Oral for 30 Not-Taking Medrol stacie 4mg as directed orally a s directed for 6 days 11/17/2024 Active Simvastatin 40 MG TAKE ONE TABLET BY MOUTH AT BEDTIME Oral for 30 Active Physical Therapy . . . 2-3x/week for 3- 4 weeks 11/17/2024 Active Raloxifene HCl 60 MG TAKE 1 TABLET ONCE A DAY Oral for 30 Active TEGretol 200 MG 1 tablet Orally Twic e a day Active Gabapentin 100 MG 1 capsule Orally Onc e a day for 30 day(s) Active Metoprolol Succinate 50 MG 1 capsule Ora lly Once a day for 30 day(s) Active Social History Tobacco Use: Social History Observation Description Date Details (start date - stop date) Never Smoker NA - NA Tobacco Use/Smoking Question Answer Notes Are you a: nonsmoker Additional Findings: Tobacco Non-User Current no n-smoker Tobacco use other than smoking: Question Answer Notes Are you an other tobacco user? 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 and Flat foot [pes planus] (acquired), left foot M21.42 Assessments Encounter Date Diagnosis (ICD Code) Assessment Notes Treatment Notes Treatment Clinical Notes Section Notes 01/04/2025 Posterior tibial tendinitis of left lower extremity (ICD-10 - M76.822) 01/04/2025 Hypertrophy of bone, left ankle and foot (ICD-10 - M89.372) 01/04/2025 Flat foot [pes planus] (acquired), left foot (ICD-10 - M21.42) Plan Of Treatment Next Appt Details Follow Up: prn, Reason: Progress Notes * Fara SORENSON CDOB:1955 (69 yo F)Acc No.[id number]:01/04/2025 Progress Notes Patient:?Fara SORENSON Provider:?Inna Li DPM :1955???Age:69 Y???Sex:Female D ate:01/04/2025 Address:[facility] [address] [place], [place] Pcp:Candelaria Noland MD Subjective: * Chief Complaints: * ???Foot pain * HPI: ???Foot Pain:?Nature:?aching, pulling, tenderness, throbbing, weakness.?Location:?LEFT, Bottom, Arch(es).?Duration:?several months.?Onset:?, gradual, denies trauma.?Course:?, improved, at 99%.?Aggravated:?any pressure, standing, walking.?Treatments:?rest/alter normal daily activity, ice, change in shoes- New Balance, oral anti-inflammatories, stretching.? * ROS:?General/Constitutional:?Nausea?denies.?Vomiting?denies.?Hunger Thirst?denies.?Loss appetite?denies.?Chills?denies.?Fatigue?denies.?Fever?denies.?Night Sweats?denies.?Unexplained weight loss?denies.?Unexplained weight gain?denies.?HEENTM:?Dentures?denies.?Dizziness?denies.?Glasses/contacts?denies.?Retinopathy?de nies.?Blurred/double vision?denies.?TMJ?denies.?Discharge/drainage?denies.?Implants?denies.?Sore throat?denies.?Dental implants?denies.?Hard of hearing ?denies.?Difficulty chewing/swallowing/speaking?denies.?Nose bleeds?denies.?Sore mouth?denies.?Respiratory:?On Oxygen?denies.?Pneumonia/pleurisy?denies.?Bronchitis?denies.?Emphysema?denies.?C oughing?denies.?Cough blood?denies.?Shortness of breath?denies.?Wheezing?denies.?Cardiovascular:?Pacemaker?denies.?MVP?denies.?WPW?denies.?CHF?denies.?Heart attack?denies.?Septal defect?denies.?Rapid beat?denies.?Chest pain ?denies.?Atrial Fib.?denies.?Murmur/Palpitations?denies.?Gastrointestinal:?Hemorrhoids?denies.?Stomach/Abdominal pain?denies.?Dark blood stool?denies.?Irritable bowel ?denies.?Constipation?denies.?Diarrhea?denies.?Hematology:?Swelling?denies.?Clots?denies.?Varicose Veins?denies.?Bruising?denies.?Bleeding problem?denies.?Genitourinary:?Blood urine?denies.?Frequent/Painfu/urination/bladder control?denies.?Kidney stones?denies.?Infection (UTI)?denies.?Nephropathy?denies.?sex trans dis (STD)?denies.?Prostate?denies.?Musculoskeletal:?Hammertoes?denies.?Bunions?denies.?Back Pain?denies.?Muscle Cramps/ Resting?denies.?Muscle cramps / walking?denies.?Generalized aches and pains?denies.?Weakness?denies.?Integ.:?Puga?denies.?Scars?denies.?Corns/calluses?denies.?Ingrown nails?denies.?Painful nails?denies.?Open Sores?denies.?Rashes?denies.?Neurologic:?Difficulty sleeping?denies.?Brain disorder?denies.?Numbness?denies.?Balance trouble?denies.?Confusion?denies.?Fainting/blackouts?denies.?Tingling?denies.?Tr emors?denies.? * Medical History:? * Surgical History:?hip replac ement [facility] [place]/17/2023 * Hospitalization/Major Diagno stic Procedure:?Denies Past Hospitalization * Family History:?Mother: dece ased, diagnosed with Unspecified essential hypertension.?Father: , diagnosed with Unspecified essential hypertension, Unspecified heart disease.?Spouse: diagnosed with Unspecified cerebral artery occlusion with cerebral infarction.? * Social History:?Tobacco Use:?Tobacco Use/Smoking?Are you a:?nonsmoker ?Additional Findings: Tobacco Non-User?Current non-smoker ?Tobacco use other than smoking?Are you an other tobacco user??No ???Miscellaneous:?Caffeine: yes, 1 cup per day. ?Children: yes, 2. ?Exercise: yes, Physical therapy for leg. ?Marital status: . 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 * Medications:?TakingGabapenti n 100 MG Capsule 1 capsule Orally Once a day Metoprolol Succinate 50 MG Capsule ER 24 Hour Sprinkle 1 capsule Orally Once a day TEGretol 200 MG Tablet 1 tablet Orally Twice a day Simvastatin 40 MG Tablet TAKE ONE TABLET BY MOUTH AT BEDTIME Oral Raloxifene HCl 60 MG Tablet TAKE 1 TABLET ONCE A DAY Oral Physical Therapy . . . . 2-3x/week Medrol stacie 4mg Tablet Therapy Pack as directed orally as directed Taking Gabapentin 100 MG Capsule 1 capsule Orally Once a day Taking Metoprolol Succinate 50 MG Capsule ER 24 Hour Sprinkle 1 capsule Orally Once a day Taking TEGretol 200 MG Tablet 1 tablet Orally Twice a day Taking Simvastatin 40 MG Tablet TAKE ONE TABLET BY MOUTH AT BEDTIME Oral Taking Raloxifene HCl 60 MG Tablet TAKE 1 TABLET ONCE A DAY Oral Taking Physical Therapy . . . . 2-3x/week Taking Medrol stacie 4mg Tablet Therapy Pack as directed orally as directed Not- Taking/PRNAtenolol 50 MG Tablet TAKE ONE TABLET BY MOUTH EVERY DAY Oral Multivitamin Nightsplint . . . . AFO - L1930 Sulindac 150 MG Tablet TAKE ONE TABLET BY MOUTH TWICE A DAY Oral carBAMazepine 200 MG Tablet TAKE ONE TABLET BY MOUTH THREE TIMES A DAY Oral ALPRAZolam 0.25 MG Tablet (Schedule IV Drug) TAKE TWO TABLETS BY MOUTH EVERY DAY NEEDED Oral Medication List reviewed and reconciled with the patientNot- Taking/PRN Atenolol 50 MG Tablet TAKE ONE TABLET BY MOUTH EVERY DAY Oral Not-Taking/PRN Multivitamin Not-Taking/PRN Nightsplint . . . . AFO - L1930 Not-Taking/PRN Sulindac 150 MG Tablet TAKE ONE TABLET BY MOUTH TWICE A DAY Oral Not-Taking/PRN carBAMazepine 200 MG Tablet TAKE ONE TABLET BY MOUTH THREE TIMES A DAY Oral Not-Taking/PRN ALPRAZolam 0.25 MG Tablet (Schedule IV Drug) TAKE TWO TABLETS BY MOUTH EVERY DAY NEEDED Oral Medication List reviewed and reconciled with the patient * Allergies:?N.K.D.A.yes[Aller gies Verified] Objective: * Vitals:?Ht: 5ft9in, Wt:167, BMI:24.66, Shoe size: 9, BP:130/70mm Hg, Ht-cm: 175.26 cm, Wt-k.75 kg. * Examination: ???General Examination: ?GENERAL APPEARANCE:?Reveals a pleasant, alert, well-nourished, well- developed, well hydrated individual, who demonstrates proper attention to hygiene/body habitus, and is in no acute distress, Pt serves as own?historian for office visit today.?ORIENTED:?person, place, and time.?Vascular: ?DP PULSES (B):?3/4, B/L.?PT PULSES (B):?3/4, B/L.?CAPILLARY FILL TIME:?immediate, all digits, B/L.?TROPHIC CONDITION-TEXTURE/ELASTICITY/TURGOR/HAIR GROWTH (B):?normal, B/L.?TEMPERTURE GRADIENT (C):?warm to cool, proximal to distal, B/L.?PIGMENTATION:?normal, B/L.?EDEMA (C):?absent, B/L.?Dermatologic: ?SKIN FINDINGS:?Skin exam reveals normal texture, elasticity, and turgor. There are no masses. The interspaces are clear.?Orthopedic: ?MUSCLE STRENGTH:?5/5 all groups in a symmetrical fashion , B/L.?FOOT MORPHOLOGY:?, Pes Planus structure, LEFT, Rigid medial/plantar protrusion of Midfoot at area of Navicular tuberosity.?TENDONITIS:?NO Pain on palpation or? inflammation,? ?to,Posterior Tibial Tendon,insertion,sheath,LEFT,?Pain with Range of Motion left foot without pain.?FOOTWEAR:?good condition.?Neurological: ?SENSORY:?Neurological exam demonstrates reduced sharp/dull pin prick discrimination reduced light touch sensation reduced vibration sensation reduced proprioception sensation in a stocking fashion 5.07 monofilament test performed at plantar aspects of 5 varied sites per foot shows sensation plantar aspects absent at Forefoot B/L, Pt relates, pins and needles sensation, shooting/radiating sensation.? Assessment: * Assessment: 1.?Hypertrophy of bone, left ankle and foot - M89.372???2.?Posterior tibial tendinitis of left lower extremity - M76.822 (Primary)???3.?Flat foot [pes planus] (acquired), left foot - M21.42??? Plan: * Treatment: * Procedure Codes:? * Preventive Medicine:? ??Counseling:?Discussion:?-13: Office or other outpatient visit for the evaluation and management of an established patient, which required a medically appropriate history and/or examination and LOW level of DECISION MAKING for: 1 STABLE ACUTE UNCOMPLICATED PROBLEM, 2 OR MORE MINOR PROBLEMS, OR 1 STABLE CHRONIC PROBLEM, THAT POSE(S) A LOW RISK FOR MORBIDITY/MORTALITY. The visit on the day of the encounter encompassed interpreting the data and educating the patient as to the nature of their condition, treatment options available according to their individual PMH, meds, allergies, and overall health/living conditions, as well as any potential risks or complications that may occur from a failure to adhere to, and participate in, the recommended course of therapy. The discussion included a complete verbal, and/or written explanation of the examination results, any x-rays taken, the proposed diagnosis, and outline of the treatment plan. A schedule for future care needs was also explained. The patient verbalized an understanding of the instructions at this time and agreed to be an active participant in their treatment. If the patient should think of any questions or concerns after the visit, I have encouraged the patient to call the office, Given recent successful results to treatment, The patient wishes to continue with the present treatment plan for their condition, Patients podiatric issue has improved, they should call the office with any future issues or concerns.?Myositis/Tendonitis:?Discussed other tx options for the patients condition, given recent successful results to treatment, the patient wishes to continue with the present plan for their condition.? ??Screening/Special Tests:?Fall Risk?Screening:?No falls in the past year ?FALLS: Screening for Future Fall Risk?Have you had any falls with injury in the past year??No * Follow Up:?prn * Images: * Sign off status: Completed true * Provider:?Inna Li, DPM Date:? Generated for Neena amaral/Brigette/eTransmitting on:?02/16/2025 08:35 AM EDT History and Physical Notes * HPI (History of Present Illness) Category Sub-Category Detail Notes Category Not es Foot Pain Nature: aching, pulling, tenderness, throbbing, weakness Location: LEFT, Bottom, Arch(e s) Duration: several months Onset: , gradual, denies tr auma Course: , improved, at 99% Aggravated: any pressure, standi ng, walking Treatments: rest/alter normal da marj activity, ice, change in shoes- New Balance, oral anti-inflammatories, stretching Examination Category Sub-Category Detail Notes Category Not es Neurological SENSORY: Neurological exa m demonstrates reduced sharp/dull pin prick discrimination reduced light touch sensation reduced vibration sensation reduced proprioception sensation in a stocking fashion 5.07 monofilament test performed at plantar aspects of 5 varied sites per foot shows sensation plantar aspects absent at Forefoot B/L, Pt relates, pins and needles sensation, shooting/radiating sensation Dermatologic SKIN FINDINGS: Skin exam reveal s normal texture, elasticity, and turgor. There are no masses. The interspaces are clear Orthopedic FOOT MORPHOLOGY: , Pes Planus st ructure, LEFT, Rigid medial/plantar protrusion of Midfoot at area of Navicular tuberosity FOOTWEAR EVALUATION: good condition TENDONITIS: NO Pain on palpation or inflammation, to,Posterior Tibial Tendon,insertion,sheath,LEFT, Pain with Range of Motion left foot without pain MUSCLE STRENGTH: 5/5 all groups in a symmetrical fashion , B/L General Examination GENERAL APPEARANCE: Reveals a pleasant, alert, well- nourished, well-developed, well hydrated individual, who demonstrates proper attention to hygiene/body habitus, and is in no acute distress, Pt serves as own historian for office visit today ORIENTED: person, place, and t shana Vascular DP PULSES (B): 3/4, B/L PT PULSES (B): 3/4, B/L CAPILLARY FILL TIME: immediate, all digi ts, B/L TEMPERTURE GRADIENT (C): warm to cool, p roximal to distal, B/L TROPHIC CONDITION-TEXTURE/ELASTICITY/TURGOR/HAIR GROWTH (B): normal, B/L EDEMA (C): absent, B/L PIGMENTATION: normal, B/L
--- OUTSIDE RECORDS SUMMARY | 2025-02-16 08:35 | XMS_ITS | Continuity of Care Document ---
Author Organization [facility] Address [address] [place] [address], [address] [address]- Care Team Providers Care Reimbursement Consultant Name Role Phone Matheus MAGAÑA, Lauren Quiroz Primary Care Physician [phone] Encounter [facility] [id number] Date(s): 01/12/25 - [facility]/11/[facility] [address] [place], [place] [address] Attending Physician: Shira Martínez Admitting Physician: Shira Martínez Referring Physician: [id number] Encounter Type: Triage Allergies, Adverse Reactions, Alerts No Known Allergies Medications estradiol 0.1 mg/g vaginal cream = 1 Gm, Vaginally, Daily at bedtime, 0 Refill(s), APPLY 1 GRAM BY VAGINAL ROUTE 2 TIMES A WEEK, # 42.5 Gm, 3 Refills, Maintenance, 11/24/24 10:57:00 AM EST, Cream, [facility], Partial fill upon patient request if the prescription is for a schedule II opioid drug. Start Date: 11/24/24 Status: Ordered Quantity: 42.5 Unit: g Repeat number: 4 lisinopril 10 mg oral tablet 90 each, 0 Refill(s), TAKE ONE TABLET BY MOUTH DAILY AT BEDTIME, Refills 0, 11/24/24 10:01:00 AM EST, Partial fill upon patient request if the prescription is for a schedule II opioid drug. Start Date: 11/24/24 Status: Ordered Repeat number: 1 metoprolol 100 mg oral tablet, extended release 100 Unknown, oral, 0 Refill(s), Take 1 tablet (100 mg total) by mouth 1 (one) time each day., Refills 0, 11/24/24 10:01:00 AM EST, Partial fill upon patient request if the prescription is for a schedule II opioid drug. Start Date: 11/24/24 Status: Ordered Repeat number: 1 minoxidil 2.5 mg oral tablet 45 each, 0 Refill(s), TAKE A 1/2 TABLET BY MOUTH ONCE DAILY FOR HAIR LOSS, 0 Refills, 11/24/24 10:01:00 AM EST, Partial fill upon patient request if the prescription is for a schedule II opioid drug. Start Date: 11/24/24 Status: Ordered Repeat number: 1 Multivitamin 0 Refills, Maintenance, 01/12/25 1:29:00 PM EST, Partial fill upon patient request if the prescription is for a schedule II opioid drug. Start Date: 01/12/25 Status: Ordered Repeat number: 1 raloxifene 60 mg oral tablet 1 tablet = 60 mg, By Mouth, Daily, 90 each, 0 Refill(s), TAKE ONE TABLET BY MOUTH EVERY DAY, # 90 tablet, 3 Refills, Maintenance, 11/24/24 11:04:00 AM EST, Tablet, [facility], Partial fill upon patient request if the prescription is for a schedule II opioid drug. Start Date: 11/24/24 Status: Ordered Quantity: 90.0 Unit: tablet Repeat number: 4 simvastatin 40 mg oral tablet 90 each, 0 Refill(s), TAKE ONE TABLET BY MOUTH EVERY EVENING AT BEDTIME, Refills 0, 11/24/24 10:01:00 AM EST, Partial fill upon patient request if the prescription is for a schedule II opioid drug. Start Date: 11/24/24 Status: Ordered Repeat number: 1 TEGretol 200 mg oral tablet 200 mg, 1, tablet, By Mouth, 4 times a day, Refills 0, Maintenance, 01/12/25 1:29:00 PM EST, Partial fill upon patient request if the prescription is for a schedule II opioid drug. Start Date: 01/12/25 Status: Ordered Repeat number: 1 Problem List Condition Confirmation Course Effective Dates Status Health Status Informant Electrocardiogram abnormal Confirmed 09/24/05 Active History of total hip arthroplasty Confirmed 11/25/23 Active Hyperlipidemia Confirmed 11/16/06 Active Hypertensive disorder Confirmed 06/30/05 Active Osteoporosis Confirmed 07/18/13 Active Plantar fascial fibromatosis Confirmed 10/17/24 Active Polyneuropathy Confirmed 12/13/21 Active Prediabetes Confirmed 12/05/21 Active Seizure disorder Confirmed 09/24/05 Active Social History Social History Type Response Smoking Status Never (less than 100 in lifetime) entered on: 12/02/24 Sex Sex Representation Female (finding) Patient Care team information Care Team Personnel Name: Lauren Jarvis MD Position: S Physician - Primary Care Member Role: PCP Address: [address] [place] [id number] Telecom: Care Team Related Persons Name: NO, NO ONE Name: MICHELINE SORENSON Insurance Providers Guarantor name: CULLEN SORENSON Health Plan Information #: 1 Payer: MEDICARE PART B OUTPT Member Number: NA Policy Number: NA Group Number: NA Health Plan Information #: 2 Payer: [employer] HE[employer]ARE SUP Member Number: NA Policy Number: NA Group Number: NA
--- OUTSIDE RECORDS SUMMARY | 2025-02-16 08:35 | XMS_ITS | Patient Health Record ---
Author Organization [facility] Address [address] [place] [address] Care Team Providers Care Marketing Forecaster Name Role Phone Ludin MAGAÑA, Candelaria Primary Care Provider Inna Aguirre Unavailable [phone] Allergies No Known Allergies Reason For Referral No Information Medications Medication SIG (Take, Route, Frequency, Duration) Notes Start Date End Date Status ALPRAZolam 0.25 MG (Schedule IV Drug) TAKE TWO TABLETS BY MOUTH EVERY DAY NEEDED Oral for 30 Not-Taking Atenolol 50 MG TAKE ONE TABLET BY MOUTH EVERY DAY Oral for 30 Not-Taking Medrol stacie 4mg as directed orally a s directed for 6 days 11/17/2024 Active Nightsplint . . . AFO - L1930 for . Not-Taking Multivitamin Not-Rylan ing Simvastatin 40 MG TAKE ONE TABLET BY MOUTH AT BEDTIME Oral for 30 Active TEGretol 200 MG 1 tablet Orally Twic e a day Active Physical Therapy . . . 2-3x/week for 3- 4 weeks 11/17/2024 Active Raloxifene HCl 60 MG TAKE 1 TABLET ONCE A DAY Oral for 30 Active Gabapentin 100 MG 1 capsule Orally Onc e a day for 30 day(s) Active carBAMazepine 200 MG TAKE ONE TABLET BY MOUTH THREE TIMES A DAY Oral for 30 Not-Taking Sulindac 150 MG TAKE ONE TABLET BY MOUTH TWICE A DAY Oral for 15 Not-Taking Metoprolol Succinate 50 MG 1 capsule [...] Are you an other tobacco user? No Problems Problem Type SNOMED Code ICD Code Onset Dates Problem Status W/U Status Risk Notes Problem Plantar fascial fibromatosis (06458009) Plantar fascial fibromatosis (M72.2) Active confirmed Vital Signs Blood pressure diastolic 70 mm Hg 01/04/2025 Height 5ft9in in 01/04/2025 Blood pressure systolic 130 mm Hg 01/04/2025 Weight 167 lbs 01/04/2025 BMI 24.66 kg/m2 01/04/2025 Encounters [facility]counter [facility] [address] [facility] Inna Li Pain in left foot M79.672 ; Posterior tibial tendinitis of left lower extremity M76.822 ; Hypertrophy of bone, 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 and Flat foot [pes planus] (acquired), left foot M21.42 [facility] [address] [place] [address] 01/04/2025 Inna Li Posterior tibial tendinitis of left lower extremity M76.822 ; Hypertrophy of bone, 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 and Flat foot [pes planus] (acquired), left foot M21.[address] [address] 11/17/2024 Inna Li Assessments Encounter Date Diagnosis (ICD Code) Assessment Notes Treatment Notes Treatment Clinical Notes Section Notes 11/17/2024 Pain in left foot (ICD-10 - M79.672) 11/17/2024 Posterior tibial tendinitis of left lower extremity (ICD-10 - M76.822) 01/04/2025 Hypertrophy of bone, left ankle and foot (ICD-10 - M89.372) 01/04/2025 Posterior tibial tendinitis of left lower extremity (ICD-10 - M76.822) 01/04/2025 Flat foot [pes planus] (acquired), left foot (ICD-10 - M21.42) 11/17/2024 Hypertrophy of bone, left ankle and foot (ICD-10 - M89.372) 11/17/2024 Flat foot [pes planus] (acquired), left foot (ICD-10 - M21.42) Plan Of Treatment Pending Test Test Name Order Date X ray : Foot, left 3V 11/17/2024 Insurance Providers Payer Name Payer Address Payer Phone Subscriber Number Group Number Insured Name Patient Relationship to Insured Coverage Start Date Coverage End Date Medicare National [employer] [address] [place] [address] [id number] EduardaBriean Self - patient is the insured 8 A[employer] Secondary to Medicare [address] [place] [address] [id number] Eduarda Fara Self - patient is the insured 8 Medical (General) History Medical History History ICD Code Epilepsy Seizures High blood pressure Measles Mumps Chicken pox Neuropathy in feet - unknown origin Surgical History Surgery Date(Month/Year) hip replacement [facility] 11/17/2023
--- OUTSIDE RECORDS SUMMARY | 2025-02-16 08:36 | XMS_ITS | Clinical Summary ---
Author Organization Patient Business Ser [facility] Address [address] [place] [address] Care Team Providers Care Pharmacist Name Role Phone Lauren Jarvis MD Primary Care Provider [phone] Allergies No known active allergies Medications carBAMazepine (TEGretol) 200 mg tablet Take 1 tablet (200 mg total) by mouth 3 (three) times a day. 08/12/2021 Active estradioL (ESTRACE) 0.01 % (0.1 mg/gram) vaginal cream APPLY 1 GRAM BY VAGINAL ROUTE 2 TIMES A WEEK 06/20/2019 Active MULTIVITAMIN ORAL None Entered Active raloxifene (EVISTA) 60 mg tablet Take 1 tablet (60 mg total) by mouth 1 (one) time each day. Active simvastatin (ZOCOR) 40 mg tablet Take 1 tablet (40 mg total) by mouth at bedtime. 01/08/2024 Active metoprolol succinate (TOPROL-XL) 100 mg 24 hr tablet Take 1 tablet (100 mg total) by mouth 1 (one) time each day. Active minoxidiL (LONITEN) 2.5 mg tablet TAKE A 1/2 TABLET BY MOUTH ONCE DAILY FOR HAIR LOSS 10/03/2024 Active ALPRAZolam (XANAX) 0.25 mg tablet Take 2 tablets (0.5 mg total) by mouth. 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/2024 H/O total hip arthroplasty 11/25/2023 Overview (10/17/2024): 12/02 right THR Polyneuropathy 12/13/2021 Prediabetes 12/05/2021 Osteoporosis 07/18/2013 Overview (08/18/2024): Lumbar spine T -2.5 07/15/13 [facility]; improvement on 08/15/15 BMD - osteopenia -on raloxifene Hyperlipidemia 11/16/2006 Nonspecific abnormal electrocardiogram (ECG) (EK G) 09/24/2005 Overview (08/18/2024): 12/10/04 -T wave inversion in Lead 3,flattening in V4 and AVF--subsequent stress test was negative Seizure disorder ([facility] V24, [facility] V28) 09/09 Overview (08/18/2024): last seizure 20 yrs.ago--on Tegretol-- ([place]) Hypertension 06/30/2005 Immunizations Name Administration Dates Next Due Influenza Quadravalent, MDCK , 0.5ml, with preservative (Flucelvax) 6mo and older 07/13/2018 Influenza trivalent, 0.5mL ( Fluzone High-dose) 65yo and older 07/24/2023,08/19/2022,08/12/2021,09/02 Influenza trivalent, 0.5mL, preservative free (Fluarix; FluLaval; Fluzone) ages 6mo and older (Afluria) 3 years and older 07/22/2020,08/24/2017,08/15/2016,08/09 Influenza trivalent, with pr eservative (Fluzone; Afluria) 6mo and older 08/03/2014,08/18/2013,08/26/2012,09/01,08/30/2010,08/09/2010,08/02/2009 Influenza, Unspecified 07/23/2020,2016,08/15/2016,08/03 Pfizer (ages 12 & older) Biv alent, COVID-19 08/19/2022 Pneumococcal conjugate 13 va lent (Prevnar 13, PCV13) 2mo and older 10/12/2018 Pneumococcal polysaccharide 23 valent (Pneumovax 23) 2yo and older 08/27/2020 Td Tetanus diptheria (Tdvax) 7yo and older 03/03/2019 Tdap Tetanus diptheria acell ular pertussis (Boostrix; Adacel) 7yo and older 11/20/2008 Zoster Live 05/11/2014 Zoster recombinant (Shingrix ) 19yo and older 11/12/2020,09/10/2020 Surgical History Surgery Date Site/Laterality Comments COLONOSCOPY 08/07/2015 PROCEDURE: HISTORICAL COLONOSCOPY; COMMENT: Dr. Martinez HIP ARTHROPLASTY 11/2023 Right PROCEDURE: HISTORICAL HIP REPLACEMENT Medical History Medical History Date Comments Essential hypertension, benign 06/30/05 D X:Essential hypertension, benign Palpitations DX:Palpitations Other convulsions DX:Other convu lsions; COMMENT: last seizure 26 yrs.ago--on Tegretol--([place]) Nonspecific abnormal electro cardiogram (ECG) (EKG) DX:Nonspecific abnormal electrocardiogram (ECG) (EKG); COMMENT: 12/10/04 -T wave inversion in Lead 3,flattening in V4 and AVF--subsequent stress test was negative Other and unspecified hyperlipidemia 11/16/2006 DX:Other and unspecified hyperlipidemia H/O total hip arthroplasty 11/25/2023 DX:H/ O total hip arthroplasty; COMMENT: 12/02 right THR Family History Medical History Relation Name Comments Ovarian cancer Aunt maternal Stroke Father Other: Other Mother cardiac disease with Pacer Breast cancer Neg Hx Colon cancer Neg Hx Diabetes Neg Hx Relation Name Status Comments Aunt Father Mother Social History Tobacco Use Types Packs/Day Years Used Date Smoking Tobacco: Never Smokeless Tobacco: Never Tobacco Cessation:Counseling Given: Not Answered Alcohol Use Standard Drinks/Week Comments No 0 (1 standard drink = 0.6 oz pur e alcohol) Housing Instability Answer Date Recorde d Are you worried that in the next 2 months you may not have stable housing? No 10/16/2024 Food Access & Nutrition Answer Date Rec orded Do you have access to a vari ety of food including fruits and vegetables? Yes 10/16/2024 Access to Healthcare Answer Date Record ed Within the last 3 months, ho w many times did you visit the emergency department for your medical care? 0 10/16/2024 Health Literacy Answer Date Recorded How often do you need to hav e someone help you when you read instructions, pamphlets, or other written material from your doctor or pharmacy? Never 10/16/2024 Caregiver: How often do you need to have someone help you when you read instructions, pamphlets, or other written material from your doctor or pharmacy? Not on file 10/16/2024 Financial Risk Answer Date Recorded How hard is it for you to pa y for the very basics like food, housing, medical care, and air conditioning / heating? Not very hard 10/16/2024 Transportation Answer Date Recorded Has the lack of transportati on kept you from meetings, work, or from getting things needed for daily living? No Has the lack of transportati on kept you from medical appointments or from getting medications? No 10/16/2024 Social Isolation Answer Date Recorded How often do you feel lonely or isolated from th ose around you? Never 10/16/2024 Food Risk Answer Date Recorded Within the past 12 months we worried whether our food would run out before we got money to buy more. Never true 10/16/2024 Within the past 12 months th e food we bought just didn't last and we didn't have money to get more. Never true 10/16/2024 Dependent Care Answer Date Recorded Do you need help finding or paying for care for your loved ones. For example, children's ministry director or elderly care for an older adult? No 10/16/2024 Education Answer Date Recorded Do you think completing more education or training, like finishing a GED, going to college, or learning a trade, would be helpful for you? No 10/16/2024 Employment and Income Answer Date Recor ded During the last four weeks, have you been actively looking for work? No 10/16/2024 Living Situation Answer Date Recorded What is your living situation? 1 12/17/2023 Comments Unknown Sex and Gender Information Value Date Recorded Sex Assigned at Not on file Legal Sex Female 10:42 PM EDT Gender Identity Not on file Sexual Orientation Not on file Obstetrics History Last Filed Vital Signs Vital Sign Reading Time Taken Comments Blood Pressure 134/70 11/04/2024 3:20 PM EST Pulse 63 11/04/2024 3:20 PM EST Temperature 35.7 ??C (96.2 ??F) 11/04/2024 3:20 PM ES T Respiratory Rate 18 11/04/2024 3:20 PM EST Oxygen Saturation 95% 11/04/2024 3:20 PM EST Inhaled Oxygen Concentration - - Weight 78 kg (172 lb) 11/04/2024 3:20 PM EST Height 175.3 cm (5' 9 ) 11/04/2024 3:20 PM EST Body Mass Index 25.4 11/04/2024 3:20 PM EST Plan of Treatment Upcoming Encounters Date Type Department Care Team (Late st Contact Info) Description 03/22/2025 3:30 PM EDT Office Visit Adult Medicine [facility] [address] [place] [address] Lauren Jarvis MD [address] [place] [address] Health Maintenance Due Date Last Done Comments Falls Risk Assessment 07/20/2025 07/20/2024, 023 Medicare Annual Wellness Visit 07/20/2025 07/20/2024 Colorectal Cancer Screening: Colonoscopy 08/07/2025 08/07/2015 Depression Screening 10/16/2025 10/16/2024, 07/20/20 24 Social Influencers of Health Screening 10/16/2025 10/16/2024 Hypertension/CHF/CAD Annual BMP Blood Test 10/18/2025 10/18/2024, 01/04/2024 Breast Cancer Screening 07/20/2026 07/20/20 24, 02/26/2024, 02/23/2023, Additional history exists RSV Immunization Adult Patients (1 - 1-dose 75+ series) 2028 DTaP,Tdap,and Td Vaccines (3 - Td or Tdap) 03/03/2029 03/03/2019, 11/20/2008 Cholesterol Screening (Lipid Panel) 10/18/2029 10/18/2024, 06/24/2023 Osteoporosis Screening (Bone Density Screening) 02/24/2033 02/24/2023, 12/18/2019 Hepatitis C Screening Completed 06/01/2013 Pneumococcal Vaccine: 50+ Years Completed 08/27/2020, 10/12/2018 Zoster Vaccines Completed 11/12/2020, 12/2019, 05/11/2014 COVID-19 Vaccine Completed 07/21/2024, , 08/19/2022, Additional history exists Influenza Vaccine Completed 07/21/2024, , 07/21/2023, Additional history exists HIB Vaccines Aged Out No longer eligi ble based on patient's age to complete this topic HPV Vaccines Aged Out No longer eligi ble based on patient's age to complete this topic Hepatitis A Vaccines Aged Out No long er eligible based on patient's age to complete this topic Hepatitis B Vaccines Aged Out No long er eligible based on patient's age to complete this topic IPV Vaccines Aged Out No longer eligi ble based on patient's age to complete this topic MMR Vaccines Aged Out No longer eligi ble based on patient's age to complete this topic Meningococcal ACWY Vaccine Aged Out N o longer eligible based on patient's age to complete this topic Meningococcal B Vaccine Aged Out No l onger eligible based on patient's age to complete this topic RSV Immunization Patients Under 20 months Aged Out No longer eligible based on patient's age to complete this topic Varicella Vaccines Aged Out No longer eligible based on patient's age to complete this topic Procedures Procedure Name Priority Date/Time Associated Diagnosis Comments COMPREHENSIVE METABOLIC PANEL Routine 10/18/2024 10:52 AM EST Hyperlipidemia, unspecified hyperlipidemia type Primary hypertension Prediabetes Polyneuropathy Osteoporosis, unspecified osteoporosis type, unspecified pathological fracture presence Seizure disorder (CMS/HCC V24, CMS/HCC V28) LIPID PANEL WITH REFLEX TO DIRECT LDL Routine 10/18/2024 10:52 AM EST Hyperlipidemia, unspecified hyperlipidemia type Primary hypertension Prediabetes Polyneuropathy Osteoporosis, unspecified osteoporosis type, unspecified pathological fracture presence Seizure disorder (CMS/HCC V24, CMS/HCC V28) HM DEPRESSION SCREENING Routine 07/20/2024 RADHA SCREENING DIGITAL Routine 02/26/2024 2:03 PM EDT Encounter for screening mammogram for malignant neoplasm of breast FALLS RISK ASSESSMENT Routine 10/29/2023 [facility] DEXA AXIAL SKELETON Routine 02/24/2023 7:58 AM EDT Other specified disorders of bone density and structure, other site COLONOSCOPY Routine 08/07/2015 HEPATITIS C SCREENING Routine 06/01/2013 from Last 3 Months or Most Recently Relevant to Health Maintenance Results * Lipid panel with reflex to direct LDL (10/18/2024 10:52 AM EST) Cholesterol 153 0 - 200 mg/dL LAB CHEMISTRY METHOD 10/18/2024 5:36 PM [facility] Triglycerides 129 0 - 150 mg/dL LAB CHEMISTRY METHOD 10/18/2024 5:36 PM [facility] HDL 69 >=40 mg/dL LAB CHEMISTRY METHOD 10/18/2024 5:36 PM [facility] LDL Calculated 58 0 - 100 mg/dL LAB CHEMISTRY METHOD 10/18/2024 5:36 PM [facility] VLDL Cholesterol Damian 25.8 mg/dL LAB CHEMISTRY METHOD 10/18/2024 5:36 PM [facility] Non HDL Chol. (LDL+VLDL) 84 <145 mg/dL LAB CHEMISTRY METHOD 10/18/2024 5:36 PM [facility] Chol/HDL Ratio 2.2 0.0 - 4.4 LAB CHEMISTRY METHOD 10/18/2024 5:36 PM [facility] Blood Venous blood specimen / Unknown Venipuncture / Unknown 10/18/2024 10:52 AM EST 10/18/2024 10:52 AM EST Darrel BONNER LAB BLOOD ORDERABLES oRx lees Result [facility] [address] [place] [address], [place] [phone] * (ABNORMAL) Comprehensive metabolic panel (10/18/2024 10:52 AM EST) Sodium 140 133 - 145 mmol/L LAB CHEMISTRY METHOD 10/18/2024 5:36 PM EST [facility] Potassium 3.8 3.5 - 5.5 mmol/L LAB CHEMISTRY METHOD 10/18/2024 5:36 PM [facility] Chloride 106 96 - 110 mmol/L LAB CHEMISTRY METHOD 10/18/2024 5:36 PM [facility] CO2 29 21 - 32 mmol/L LAB CHEMISTRY METHOD 10/18/2024 5:36 PM [facility] Anion Gap 5 3 - 11 LAB CHEMISTRY METHOD 10/18/2024 5:36 PM [facility] Glucose 135(H) 70 - 100 mg/dL LAB CHEMISTRY METHOD 10/18/2024 5:36 PM [facility] BUN 11 5 - 25 mg/dL LAB CHEMISTRY METHOD 10/18/2024 5:36 PM [facility] Creatinine 0.74 0.50 - 1.10 mg/dL LAB CHEMISTRY METHOD 10/18/2024 5:36 PM [facility] eGFR 87 >=60 mL/min/1. 73m2 LAB CHEMISTRY METHOD 10/18/2024 5:36 PM [facility] Comment:Calculation based on the??Chronic Kidney Disease Epidemiology Collaboration (CKD-EPI) equation refit??without adjustment for race. BUN/Creatinine Ratio 14.9 LAB CHEMISTRY METHOD 10/18/2024 5:36 PM [facility] Calcium 9.0 8.5 - 10.5 mg/dL LAB CHEMISTRY METHOD 10/18/2024 5:36 PM [facility] AST (SGOT) 27 10 - 42 unit/L LAB CHEMISTRY METHOD 10/18/2024 5:36 PM [facility] ALT (SGPT) 32 10 - 60 unit/L LAB CHEMISTRY METHOD 10/18/2024 5:36 PM [facility] Alkaline Phosphatase 93 42 - 121 unit/L LAB CHEMISTRY METHOD 10/18/2024 5:36 PM [facility] Total Protein 6.7 6.0 - 8.0 g/dL LAB CHEMISTRY METHOD 10/18/2024 5:36 PM [facility] Albumin 3.9 3.2 - 5.0 g/dL LAB CHEMISTRY METHOD 10/18/2024 5:36 PM [facility] Total Bilirubin 0.3 0.0 - 1.4 mg/dL LAB CHEMISTRY METHOD 10/18/2024 5:36 PM [facility] Blood Venous blood specimen / Unknown Venipuncture / Unknown 10/18/2024 10:52 AM EST 10/18/2024 10:52 AM EST Darrel BONNER LAB BLOOD ORDERABLES Rox l Result [facility] [address] [place] [address], * Depression Screening (07/20/2024) Depression Screening abstracted Historical Provider HEALTH MAINTENANCE Final Result * RADHA SCREENING DIGITAL (02/26/2024 2:03 PM EDT) Anatomical Region Laterality Modality Mammography 02/26/2024 12:4 7 PM EDT Narrative 02/26/2024 2:03 PM EDT [facility] Diagnostic Imaging Department [address] [place] [id number] Patient: ??FARA SORENSON ?/Age/Sex: 1955 - 68 - F Unit#: ??[id number] ? Location/Status: ??SPDIMAM/REG CLI ? Mnemonic/Ordering Site: ??DIGSC/SPMAM Ordering Physician: ??DANY LOPEZ MD [facility] Screening Digital - 02/26/24 - 1321 Report Status:Signed EXAM: [facility] Screening Digital EXAM DATE AND TIME: 02/26/2024 1:31 PM HISTORY: ??Screening. COMPARISON: ??02/23/23, 02/20/22, 02/18/21, 12/16/19 TECHNIQUE: Bilateral digital breast tomosynthesis was performed in the CC and MLO projections. Computer aided detection with [employer] 3D 3.1 was employed. TISSUE DENSITY: a. The breasts are almost entirely fatty. FINDINGS: No suspicious masses, grouped microcalcifications, or areas of architectural distortion are seen. Benign rim and secretory calcifications are again seen. Vascular calcification is present. The skin is unremarkable. IMPRESSION: Stable mammographic appearance of the breasts. ??No evidence of malignancy is seen. A negative mammogram in the presence of a clinically suspicious palpable abnormality does not preclude the possibility of malignancy or alter the indic ations for biopsy. BI-RADS: ??Category 2: Benign RECOMMENDATION(S): 1: Routine screening mammogram BILATERAL in 1 year. Dictating Physician: ??VIOLET BERMUDEZ MD Electronically Signed by: ??VIOLET BERMUDEZ MD Dic Date/Time: ??02/26/24 1403 Sign date/Time: ??02/26/24 1403 Procedure Note Violet Bermudez MD - 06/27/2024 [facility] Diagnostic Imaging Department [address] [place] [address] [id number] Patient: FARA SORENSON /Age/Sex: 1955 - 68 - F Unit#: [id number] [facility]Ordering Site[facility] Ordering Physician: DANY LOPEZ MD [facility] Screening Digital - 02/26/24 - 1321 Report Status:Signed EXAM: [facility] Screening Digital EXAM DATE AND TIME: 02/26/2024 1:31 PM HISTORY: Screening. COMPARISON: 02/23/23, 02/20/22, 02/18/21, 12/16/19 TECHNIQUE: Bilateral digital breast tomosynthesis was performed in the CCand MLO projections. Computer aided detection with [employer] 3D 3.1was employed. TISSUE DENSITY: a. The breasts are almost entirely fatty. FINDINGS: No suspicious masses, grouped microcalcifications, or areas ofarchitectural distortion are seen. Benign rim and secretory calcifications are againseen. Vascular calcification is present. The skin is unremarkable. IMPRESSION: Stable mammographic appearance of the breasts. No evidence of malignancyis seen. A negative mammogram in the presence of a clinically suspicious palpable abnormality does not preclude the possibility of malignancy or alter theindic ations for biopsy. BI-RADS: Category 2: Benign RECOMMENDATION(S): 1: Routine screening mammogram BILATERAL in 1 year. Dictating Physician: VIOLET BERMUDEZ MD Electronically Signed by: VIOLET BERMUDEZ MD Dic Date/Time: 02/26/241402 Sign date/Time: 02/26/241402 Dany Lopez MD IMG BI PROCEDURES Final Result * Hm Falls Risk Assessment (10/29/2023) Falls Risk Assessment abstracted us Historical Provider HEALTH MAINTENANCE Final Result * RADHA DEXA AXIAL SKELETON (02/24/2023 7:58 AM EDT) Anatomical Region Laterality Modality Mammography 02/23/2023 12:3 9 PM EDT Narrative 02/24/2023 7:58 AM EDT [facility] Diagnostic Imaging Department [address] [place] [address] Patient: ??FARA SORENSON ?/Age/Sex: 1955 - 67 - F Unit#: ??[id number] ? Location/Status: ??SPDIMAM/REG CLI ? Mnemonic/Ordering Site: ??MAMDEXAAX/SPMAM Ordering Physician: ??DANY LOPEZ MD [facility] Dexa Axial Skeleton - 02/23/23 - 1318 HISTORY: ??The patient is a 67-year-old postmenopausal female with clinical concern for metabolic bone disease. FINDINGS: ??Dual energy x-ray absorptiometry of the lumbar spine and femurs is performed. The mean bone mineral density at L1-2 is 0.820 gm/cm2 which is 70% of that of young normals and 81% of that of age matched controls. This yields a T- score of -2.9 and a Z-score of -1.6 which is diagnostic of osteoporosis. The mean bone mineral density of the femurs bilaterally is 0.818 gm/cm2 which is 81% of that of young normals and 95% of that of age matched controls. ??This yields a T-score of -1.5 and a Z-score of -0.4 which is diagnostic of osteopenia. IMPRESSION: 1. Osteopenia. ??There has been a decrease of 2.1% in bone mineral density in the lumbar spine since the prior examination of 12/16/2019. ??There has been a decrease of 1.7% in bone mineral density in the right femur and a decrease of 3.7% in bone mineral density in the left femur. 2. FRAX analysis yields a 10-year probability of major osteoporotic fracture of 13.7% and a 10-year probability of hip fracture of 1.2%. Code 79842 Dictating Physician: ??RICO PRICE MD Electronically Signed by: ??RICO PRICE MD Dic Date/Time: ??02/24/23 0757 Sign date/Time: ??02/24/23 0758 Procedure Note Rico Price MD - 12/11/2023 [facility] Diagnostic Imaging Department [address] [place] [address] Patient: FARA SORENSON /Age/Sex: 1955 67 - F Unit#: [id number] Location/Status: SPDIMAM/REG CLI [facility] Ordering Physician: DANY LOPEZ MD [facility] Dexa Axial Skeleton - 02/23/231317 HISTORY: The patient is a 67-year-old postmenopausal female withclinical concern for metabolic bone disease. FINDINGS: Dual energy x-ray absorptiometry of the lumbar spine and femursis performed. The mean bone mineral density at L1-2 is 0.820 gm/cm2 which is70% of that of young normals and 81% of that of age matched controls. This yieldsa T- score of -2.9 and a Z-score of -1.6 which is diagnostic of osteoporosis. The mean bone mineral density of the femurs bilaterally is 0.818 gm/xf3iqfhu is 81% of that of young normals and 95% of that of age matched controls.This yields a T-score of -1.5 and a Z-score of -0.4 which is diagnostic of osteopenia. IMPRESSION: 1. Osteopenia. There has been a decrease of 2.1% in bone mineral densityin the lumbar spine since the prior examination of 12/16/2019. There has remedios decrease of 1.7% in bone mineral density in the right femur and a decreaseof 3.7% in bone mineral density in the left femur. 2. FRAX analysis yields a 10-year probability of major osteoporoticfracture of 13.7% and a 10-year probability of hip fracture of 1.2%. Code 72032 Dictating Physician: RICO PRICE MD Electronically Signed by: RICO PRICE MD Dic Date/Time: 02/24/23 0757 Sign date/Time: 02/24/23757 us Dany Lopez MD [facility] BI PROCEDURES Final Result * Colonoscopy (08/07/2015) Colonoscopy no interpreta tion,abstr acted Anatomical Region Laterality Modality Other Historical Provider HEALTH MAINTENANCE Final Result * Hepatitis C Screening (06/01/2013) Hepatitis C Screening abstracted Historical Provider HEALTH MAINTENANCE Final Result from Last 3 Months or Most Recently Relevant to Health [place] [address] MEDICARE [facility] Care Teams Pharmacist Relationship Specialty Start Date End Date Lauren Jarvis MD [address] [place] [address] PCP - General Internal Medicine 12/16/21
--- OUTSIDE RECORDS SUMMARY | 2025-02-16 08:36 | XMS_ITS ---
Author Organization [facility] Address [address] [address] Care Team Providers Care Food Writer Name Role Phone Ludin MAGAÑA, Candelaria Primary Care Provider Unava ilInna Mas [phone] REASON FOR VISIT buy [employer] sport red size 39 Encounters Encounter Location Date Provider Diagnosis [address] [address] 11/17/2024 Inna Li Plan Of Treatment No Information Progress Notes * Fara SORENSON CDOB:1955 (69 yo F)Acc No.[id number]:11/17/2024 Patient:?Fara SORENSON :1955???Age:69 Y???Sex:Female Address:[place], [address] * true * Date:? Generated for Printi ng/Faxing/eTransmitting on:?02/16/2025 08:35 AM EDT
== END 2025-02-16 08:26 | disposition home or self-care (01) ==
LOC: HO.HOSX 08:25
PROVIDERS: Visit Provider Orthopaedic Surgery
DX: M25.559 Pain in unspecified hip (principal); Z96.641 Presence of right artificial hip joint
CPT/HCPCS: 72170; 99212

== ENCOUNTER 2025-02-16 10:46 | Outpatient (AMB) | payer MEDICARE, SELFPAY ==
--- NOTE | 2025-02-16 10:48 | A.OFFVIS_ITS ---
Intake Visit Reasons: PO-RT ELIZABETH 11/17/23 NE-follow up Intake Note: Fara is a 68 year old female who presents today for a post operative appointment about 3 months s/p right ELIZABETH 11/17/23. She reports that she is doing very well and has no concerns. Allergies No Known Allergies Allergy (Verified 02/16/25 11:00) HPI HPI PO-RT ELIZABETH 11/17/23 NE-follow up: Details: Fara is a 69-year-old female who is 1 year status post right hip replacement. She is doing well. She has no complaints. She is walking comfortably. She has been traveling. [facility] Medical History Osteoarthritis of right hip Pre-diabetes DJD (degenerative joint disease) History of seizures Polyneuropathy HTN (hypertension) Hyperlipemia Osteoporosis Surgical History History of open reduction and internal fixation (ORIF) procedure (~2011) Hx of colonoscopy Social History Household Members: Spouse Housing: House Are you a primary director critical care to a significant other at home: No Do you presently have visiting nurse or other home services: No 75 years or older and lives alone: No Patient Tobacco Use Status: Never used Tobacco Second Hand Smoke Exposure: No service: No Physical Exam Extrem Other: On exam no pain with hip range motion and normal gait. Results Reviewed Results Reviewed: I personally reviewed relevant radiographs. Right ELIZABETH in expected post operative position with no hardware complications or evidence of loosening Assessment & Plan Assessment & Plan (1) Status post total hip replacement, right: Code(s): Z96.641 - Presence of right artificial hip joint Category: Surgical Plan: Fara 69-year-old woman doing very well status post right hip replacement. No additional treatment warranted. She can follow up as needed. Orders: Orders XR pelvis 1-2V Today M25.559 - Pain in unspecified hip Coding Level of Care Code Est Pt Level 3 (96921) Diagnoses Status post total hip replacement, right Z96.641
--- OUTSIDE RECORDS SUMMARY | 2025-02-16 12:50 | XMS_ITS | Clinical Summary ---
Author Organization Patient Business Ser [facility] Address [address] [place] [address] Care Team Providers Care Gluing Crew Leader Name Role Phone Lauren Jarvis MD Primary Care Provider [phone] Allergies No known active allergies Medications carBAMazepine [...] AVF--subsequent stress test was negative Seizure disorder ([facility] V24, [facility] V28) 09/09 Overview (08/18/2024): last seizure 20 yrs.ago--on Tegretol-- (Conrad) Hypertension 06/30/2005 Immunizations Name Administration Dates Next [...] convu lsions; COMMENT: last seizure 26 yrs.ago--on Tegretol--(Conrad) Nonspecific abnormal electro cardiogram (ECG) (EKG) DX:Nonspecific [...] for your loved ones. For example, children's literature professor or elderly care for an older adult? [...] EDT Office Visit Adult Medicine [facility] [address] [place] [address] Lauren Jarvis MD [address] [place] [address] Health Maintenance Due Date Last Done Comments [...] of breast FALLS RISK ASSESSMENT Routine 10/29/2023 [facility] DEXA AXIAL SKELETON Routine 02/24/2023 7:58 AM EDT Other specified disorders of bone density and structure, other site COLONOSCOPY Routine 08/07/2015 HEPATITIS C SCREENING Routine 06/01/2013 from Last 3 Months or Most Recently Relevant to Health Maintenance Results * Lipid panel with reflex to direct LDL (10/18/2024 10:52 AM EST) Cholesterol 153 0 - 200 mg/dL LAB CHEMISTRY METHOD 10/18/2024 5:36 PM [facility] Triglycerides 129 0 - 150 mg/dL LAB CHEMISTRY METHOD 10/18/2024 5:36 PM [facility] HDL 69 >=40 mg/dL LAB CHEMISTRY METHOD 10/18/2024 5:36 PM [facility] LDL Calculated 58 0 - 100 mg/dL LAB CHEMISTRY METHOD 10/18/2024 5:36 PM [facility] VLDL Cholesterol Damian 25.8 mg/dL LAB CHEMISTRY METHOD 10/18/2024 5:36 PM [facility] Non HDL Chol. (LDL+VLDL) 84 <145 mg/dL LAB CHEMISTRY METHOD 10/18/2024 5:36 PM [facility] Chol/HDL Ratio 2.2 0.0 - 4.4 LAB CHEMISTRY METHOD 10/18/2024 5:36 PM [facility] Blood Venous blood specimen / Unknown Venipuncture / Unknown 10/18/2024 10:52 AM EST 10/18/2024 10:52 AM EST Darrel BONNER LAB BLOOD ORDERABLES Rox lees Result [facility] [address] [place] [address], [place] [phone] * (ABNORMAL) Comprehensive metabolic panel (10/18/2024 10:52 AM EST) Sodium 140 133 - 145 mmol/L LAB CHEMISTRY METHOD 10/18/2024 5:36 PM EST [facility] Potassium 3.8 3.5 - 5.5 mmol/L LAB CHEMISTRY METHOD 10/18/2024 5:36 PM [facility] Chloride 106 96 - 110 mmol/L LAB CHEMISTRY METHOD 10/18/2024 5:36 PM [facility] CO2 29 21 - 32 mmol/L LAB CHEMISTRY METHOD 10/18/2024 5:36 PM [facility] Anion Gap 5 3 - 11 LAB CHEMISTRY METHOD 10/18/2024 5:36 PM [facility] Glucose 135(H) 70 - 100 mg/dL LAB CHEMISTRY METHOD 10/18/2024 5:36 PM [facility] BUN 11 5 - 25 mg/dL LAB CHEMISTRY METHOD 10/18/2024 5:36 PM [facility] Creatinine 0.74 0.50 - 1.10 mg/dL LAB CHEMISTRY METHOD 10/18/2024 5:36 PM [facility] eGFR 87 >=60 mL/min/1. 73m2 LAB CHEMISTRY METHOD 10/18/2024 5:36 PM [facility] Comment:Calculation based on the??Chronic Kidney Disease Epidemiology Collaboration (CKD-EPI) equation refit??without adjustment for race. BUN/Creatinine Ratio 14.9 LAB CHEMISTRY METHOD 10/18/2024 5:36 PM [facility] Calcium 9.0 8.5 - 10.5 mg/dL LAB CHEMISTRY METHOD 10/18/2024 5:36 PM [facility] AST (SGOT) 27 10 - 42 unit/L LAB CHEMISTRY METHOD 10/18/2024 5:36 PM [facility] ALT (SGPT) 32 10 - 60 unit/L LAB CHEMISTRY METHOD 10/18/2024 5:36 PM [facility] Alkaline Phosphatase 93 42 - 121 unit/L LAB CHEMISTRY METHOD 10/18/2024 5:36 PM [facility] Total Protein 6.7 6.0 - 8.0 g/dL LAB CHEMISTRY METHOD 10/18/2024 5:36 PM [facility] Albumin 3.9 3.2 - 5.0 g/dL LAB CHEMISTRY METHOD 10/18/2024 5:36 PM [facility] Total Bilirubin 0.3 0.0 - 1.4 mg/dL LAB CHEMISTRY METHOD 10/18/2024 5:36 PM [facility] Blood Venous blood specimen / Unknown Venipuncture / Unknown 10/18/2024 10:52 AM EST 10/18/2024 10:52 AM EST Darrel BONNER LAB BLOOD ORDERABLES Rox l Result [facility] [address] [place] [address], * Depression Screening (07/20/2024) Depression Screening abstracted Historical Provider HEALTH MAINTENANCE Final Result * RADHA SCREENING DIGITAL (02/26/2024 2:03 PM EDT) Anatomical Region Laterality Modality Mammography 02/26/2024 12:4 7 PM EDT Narrative 02/26/2024 2:03 PM EDT [facility] Diagnostic Imaging Department [address] [place] [id number] Patient: ??FARA SORENSON ?/Age/Sex: 1955 - 68 - F Unit#: ??[id number] ? Location/Status: ??SPDIMAM/REG CLI ? Mnemonic/Ordering Site: ??DIGSC/SPMAM Ordering Physician: ??DANY LOPEZ MD [facility] Screening Digital - 02/26/24 - 1321 Report Status:Signed EXAM: [facility] Screening Digital EXAM DATE AND TIME: 02/26/2024 1:31 PM HISTORY: ??Screening. COMPARISON: ??02/23/23, 02/20/22, 02/18/21, 12/16/19 TECHNIQUE: Bilateral digital breast tomosynthesis was performed in the CC and MLO projections. Computer aided detection with [employer] 3D 3.1 was employed. TISSUE DENSITY: a. [...] Procedure Note Violet Bermudez MD - 06/27/2024 [facility] Diagnostic Imaging Department [address] [place] [address] [id number] Patient: FARA SORENSON /Age/Sex: 1955 - 68 - F Unit#: [id number] [facility] Mnemonic/Ordering Site: [facility] Ordering Physician: DANY LOPEZ MD [facility] Screening Digital - 02/26/24 - 1321 Report Status:Signed EXAM: [facility] Screening Digital EXAM DATE AND TIME: 02/26/2024 1:31 PM HISTORY: Screening. COMPARISON: 02/23/23, 02/20/22, 02/18/21, 12/16/19 TECHNIQUE: Bilateral digital breast tomosynthesis was performed in the CCand MLO projections. Computer aided detection with [employer] 3D 3.1was employed. TISSUE DENSITY: a. The [...] PM EDT Narrative 02/24/2023 7:58 AM EDT [facility] Diagnostic Imaging Department [address] [place] [address] Patient: ??FARA SORENSON ?/Age/Sex: 1955 - 67 - F Unit#: ??[id number] ? Location/Status: ??SPDIMAM/REG CLI ? Mnemonic/Ordering Site: [...] probability of hip fracture of 1.2%. Code 08054 Dictating Physician: ??RICO PRICE MD Electronically Signed by: ??RICO PRICE MD Dic Date/Time: ??02/24/23 0757 Sign date/Time: ??02/24/23 0758 Procedure Note Rico Price MD - 12/11/2023 [facility] Diagnostic Imaging Department [address] [place] [address] Patient: FARA SORENSON /Age/Sex: 1955 67 - F Unit#: [id number] Location/Status: SPDIMAM/REG CLI [facility] Order[facility] Physician: DANY LOPEZ MD [facility] Dexa Axial Skeleton - 02/23/231317 HISTORY: The [...] density of the femurs bilaterally is 0.818 gm/ne4pbwqm is 81% of that of young normals [...] probability of hip fracture of 1.2%. Code 82231 Dictating Physician: RICO PRICE MD Electronically Signed by: RICO PRICE MD Dic Date/Time: 02/24/23 0757 Sign date/Time: 02/24/23757 us Dany Lopez MD [facility] BI PROCEDURES Final Result * Colonoscopy (08/07/2015) Colonoscopy no interpreta tion,abstr acted Anatomical Region Laterality Modality Other Historical Provider HEALTH MAINTENANCE Final Result * Hepatitis C Screening (06/01/2013) Hepatitis C Screening abstracted Historical Provider HEALTH MAINTENANCE Final Result from Last 3 Months or Most Recently Relevant to Health [place] [phone] MEDICARE [facility] Care Teams Gluing Crew Leader Relationship Specialty Start Date End Date Lauren Jarvis MD [address] [place] [address] PCP - General Internal Medicine 12/16/21
== END 2025-02-16 11:24 | disposition home or self-care (01) ==
LOC: HO.HOS 10:47
PROVIDERS: PCP Nurse Practitioner Pediatrics; Visit Provider Orthopaedic Surgery
DX: Z47.1 Aftercare following joint replacement surgery (principal); Z96.641 Presence of right artificial hip joint
CPT/HCPCS: 99212

== ENCOUNTER → 2025-02-16 10:51 | Outpatient (BNV) | payer MEDICARE, SELFPAY | PROVIDERS: Visit Provider Radiology Diagnostic Radiology | DX: M25.559 Pain in unspecified hip (principal) | CPT/HCPCS: 72170 ==